=== PATIENT | female | born 1990 | race Caucasian/White ===

== ENCOUNTER → 2019-07-21 15:15 | Outpatient (BNVA) | payer OTHER, SELFPAY | PROVIDERS: Family Provider Obstetrics & Gynecology; Visit Provider Nurse Practitioner Women's Health | DX: N93.9 Abnormal uterine and vaginal bleeding, unspecified (principal); Z11.3 Encounter for screening for infections with a predominantly sexual mode of transmission; R10.2 Pelvic and perineal pain | CPT/HCPCS: 84443; 85025; 86592; 86803; 87491; 87591; 87661 ==

== ENCOUNTER → 2019-10-18 09:10 | Outpatient (BNVA) | payer OTHER, SELFPAY | PROVIDERS: Family Provider Obstetrics & Gynecology; Visit Provider Nurse Practitioner Women's Health | DX: A74.9 Chlamydial infection, unspecified (principal); R30.9 Painful micturition, unspecified; N76.0 Acute vaginitis; B96.89 Other specified bacterial agents as the cause of diseases classified elsewhere; N89.8 Other specified noninflammatory disorders of vagina | CPT/HCPCS: 81000; 87491; 87529 ==

== ENCOUNTER 2020-01-31 02:53 | Emergency (ER) | payer OTHER, SELFPAY ==
[2020-01-31 02:56] VITALS: BP 152/85; PULSE 103; RESP 18; TEMP 36.3; O2SAT 99; BMI 29.5
--- NOTE | 2020-01-31 03:00 | XR_ITS ---
WS: [id number] EXAM: AP CHEST: PORTABLE UPRIGHT DATE OF EXAM: 01/31/2020, 0312 hours COMPARISON: Chest x-ray from 04/02/2016. HISTORY: Patient is 29 years old with fever, shortness of breath since yesterday. FINDINGS: The cardiac silhouette is normal in size. The mediastinal contours are normal. The pulmonary vas cularity is normal. Lungs are clear. Calcified granuloma in the outer right mid hemithorax. There i s no effusion or pneumothorax. No acute bony abnormality is seen. XR/XR chest 1V portable [id number] IMPRESSION: No acute pulmonary disease.
--- NOTE | 2020-01-31 03:00 | W.ED.SOB ---
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 Patient states she was in the MICU a week ago started having a fever along with shortness of breath last night. She is concerned she may have COVID. She has some body aches. Denies any vomiting. Denies any worsening or improving factors. Associated symptoms: Reports fever(s); Deny abdominal pain, chest pain, nausea or vomiting Review of Systems Const: Reports: fever(s), chills and body aches Eyes: Denies: blurry vision or eye discomfort ENMT: Denies: throat pain or dental pain Card: Denies: chest pain Resp: Reports: dyspnea GI: Denies: abdominal pain, nausea, vomiting or diarrhea : Denies: dysuria Musc: Denies: neck pain or back pain Skin/Breast: Denies: rash Neuro: Denies: headache(s) Psych: Denies: depression Rony/Lymph: Denies: easy bruising All/Imm: Denies: urticaria PFSH ED PFSH: Medical History Abnormal uterine bleeding Anxiety and depression Cervical intraepithelial neoplasia Surgical History H/O section (12/08/18) CLASSICAL DELIVERY performed at [facility]. Operative reports have been obtained and scanned into the chart on 02/06/2019---given small uterine size with fundal dyspnea umbilicus classical hysterotomy made and the incision extended with bandage scissors. Double layer closure with good hemostasis noted. H/O laparoscopy (04/01/16) 04/01/2016---diagnostic laparoscopy for chronic pain-per patient everything was normal-operative report was reviewed-normal tubes, ovaries and uterus. No endometriosis or any pathology identified. No specimen sent. History of conization of cervix (03/23/19) for BRITTANY 2---> performed by Dr. Ron at [facility]. Pathology showed BRITTANY-1 with negative margins and posteriorly. Post LEEP ECC was benign. History of hip surgery (~2012) Hip surgery for a torn tendon in [facility] Hx of tonsillectomy (~2007) Status post surgical removal of malignant neoplasm of skin (~2017) from head-wide local excision performed in 2018. Family History Grandmother Cancer MATERNAL Diabetes MATERNAL AND PATERNAL Hypertension MATERNAL AND PATERNAL Heart disease MATERNAL Hypercholesteremia MATERNAL Family history of thyroid problem MATERNAL Grandfather Cancer MATERNAL Diabetes MATERNAL Hypertension MATERNAL AND PATERNAL Colon cancer MATERNAL Stroke MATERNAL Mother Hypertension Family history of thyroid problem Father No problems noted. Father Hypertension Family/Other Stroke MATERNAL AUNT Patient denies medical problems Breast Cancer, Ovarian Cancer, UTERINE CANCER Social History Smoking and tobacco status: never smoked Alcohol intake: current Alcohol intake frequency: holidays/special occasions only Female Reproductive History: Date of last menstrual period: 01/17/20 Physical Exam Const: COMMON NORMALS: no acute distress, patient oriented x3 and healthy appearing HENMT: COMMON NORMALS: normocephalic and atraumatic HEAD & SCALP: normocephalic and atraumatic Eye: COMMON NORMALS: Equal, round and reactive pupils present and EOMs intact bilaterally PUPIL: Yes Equal, round and reactive pupils present Neck/C-Spine: COMMON NORMALS: full ROM and supple Chest: COMMONS NORMALS: normal inspection of the chest and normal palpation of entire chest wall Resp: COMMON NORMALS: normal respiratory effort, No retractions, No use of accessory muscles and clear to auscultation bilaterally AUSCULTATION: clear to auscultation bilaterally Cardio: COMMON NORMALS: regular rate, regular rhythm and No murmurs present (Cardio) RATE: regular rate RHYTHM: regular rhythm GI: COMMON NORMALS: Normal to inspection, nondistended, normoactive bowel sounds present, Soft to palpation, non-tender and no masses PALPATION: Yes Soft to palpation Extremity: COMMON NORMALS: normal to inspection and full ROM Neuro: COMMON NORMALS: patient oriented x3, moves all extremities and no focal motor deficits Psych: COMMON NORMALS: mental status grossly normal, Normal thought process present and cooperative THOUGHT PROCESS: Normal thought process present Skin: COMMON NORMALS: no rashes or lesions noted and no wounds GENERAL SKIN EXAM: no rashes or lesions noted Course Vital Signs: Vital signs: Vital Signs Temperature 97.3 F L 01/31/20 02:56 Pulse Rate 103 H 01/31/20 02:56 Respiratory Rate 18 01/31/20 02:56 Blood Pressure 152/85 01/31/20 02:56 Pulse Oximetry 99 01/31/20 02:56 MDM - SOB/Dyspnea MDM Narrative: Medical decision making narrative: Patient presents here with cough congestion fevers likely viral in origin. Patient's COVID test here is negative. X-ray is negative as well. Patient stable for discharge. Lab Data: Labs: Lab Results 01/31/20 Range/Units 03:16 SARS-CoV-2 Ag (Rap id) Negative (Negative) Imaging Data^: CXR: Attestation: I personally reviewed and interpreted this imaging study as follows: My impression: no acute abnormality Discharge Plan Discharge Patient Disposition: Home Clinical Impression: Upper respiratory infection Qualifiers: URI type: unspecified URI Qualified Code(s): J06.9 - Acute upper respiratory infection, unspecified Condition: Stable Prescriptions: No Action venlafaxine [Effexor XR] 150 mg capsule,extended release 24hr 150 mg PO DAILY RF: 0 metronidazole 500 mg tablet 500 mg PO BID Qty: 14 RF: 0 valacyclovir [Valtrex] 1 gram tablet 1,000 mg PO Q12H Qty: 20 RF: 0 lidocaine 5 % gel See Rx Instructions .ROUTE .COMPLEX Qty: 30 RF: 3 norethindrone-e.estradiol-iron [Microgestin Fe 1.5/30 (28)] 1.5 mg-30 mcg (21)/75 mg (7) tablet 1 tab PO DAILY Qty: 28 RF: 2 valacyclovir [Valtrex] 500 mg tablet 500 mg PO DAILY Qty: 90 RF: 4 fluconazole [Diflucan] 150 mg tablet 150 mg PO DAILY Qty: 2 RF: 0 Discharge Orders: Discharge Order (Routine); Ordered 01/31/20 Ordered By: Gela Neal Discharge Diet: Advance as tolerated Discharge Activity: Resume usual activity Patient Instructions: Upper Respiratory Infection (ED) Coding Level of Care Code ED Electro Mechanical Engineer for Anuj 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
[2020-01-31 03:47] LABS: SARS Covid-2 Antigen Negative (Negative)
[2020-01-31 03:57] VITALS: BP 126/78; PULSE 78; RESP 14; O2SAT 100
== END 2020-01-31 03:59 | disposition home or self-care (01) ==
PROVIDERS: Emergency Provider Emergency Medicine
DX: J06.9 Acute upper respiratory infection, unspecified (principal)
CPT/HCPCS: 12345; 71045; 87426; 99281; 99283

== ENCOUNTER 2020-02-03 17:35 | Emergency (ER) | payer OTHER, SELFPAY ==
[2020-02-03 17:41] VITALS: BP 144/85; PULSE 109; RESP 18; TEMP 36.3; O2SAT 97; BMI 26.6
--- NOTE | 2020-02-03 17:57 | ED_ITS ---
HPI - Abdominal Pain General: Chief Complaint: Abdominal Pain Stated Complaint: abd pain Time Seen by Provider: 02/03/20 17:50 History of Present Illness: HPI narrative: Patient complains of abdominal pain after eating today. Started last night she ate peanut butter and milk and he had some pretty sharp pain about 15 minutes afterward it did calm down she went to bed woke up this morning just fine then again she ate some pretzels and and stuff today and about within 15 minutes she started have some right upper quadrant pain pretty severe MD elicited complaint: abdominal pain Onset (ago): hour(s) Pain Consistency: colicky Location: RUQ Severity: moderate Quality: aching Radiation: none Migration to: no migration Exacerbating factors: eating Relieving factors: rest Associated Symptoms: Reports no associated symptoms; Denies chills, fever(s), nausea and vomiting Related Data: Date of Last Menstrual Period: 01/17/20 Review of Systems Const: Denies: fever(s), chills or body aches Eyes: Denies: change in vision or blurry vision ENMT: Denies: throat pain or nasal congestion Card: Denies: chest pain or dyspnea on exertion Resp: Denies: dyspnea, productive cough or non-productive cough GI: Reports: abdominal pain; Denies: nausea or vomiting Musc: Denies: extremity pain Skin/Breast: Denies: rash Neuro: Denies: headache(s) Psych: Denies: anxiety or depression Rony/Lymph: Denies: easy bruising [facility] ED PFSH: Medical History (Updated 02/03/20 @ 19:45 by JOHAN Barber) Abnormal uterine bleeding Anxiety and depression Cervical intraepithelial neoplasia Surgical History H/O section (12/08/18) CLASSICAL DELIVERY performed at [facility]. Operative reports have been obtained and scanned into the chart on 02/06/2019---given small uterine size with fundal dyspnea umbilicus classical hysterotomy made and the incision extended with bandage scissors. Double layer closure with good hemostasis noted. H/O laparoscopy (04/01/16) 04/01/2016---diagnostic laparoscopy for chronic pain-per patient everything was normal-operative report was reviewed-normal tubes, ovaries and uterus. No endometriosis or any pathology identified. No specimen sent. History of conization of cervix (03/23/19) for BRITTANY 2---> performed by Dr. Ron at [facility] [place]. Pathology showed BRITTANY-1 with negative margins and posteriorly. Post LEEP ECC was benign. History of hip surgery (~2012) Hip surgery for a torn tendon in [facility] Hx of tonsillectomy (~2007) Status post surgical removal of malignant neoplasm of skin (~2017) from head-wide local excision performed in 2018. Family History Grandmother Cancer MATERNAL Diabetes MATERNAL AND PATERNAL Hypertension MATERNAL AND PATERNAL Heart disease MATERNAL Hypercholesteremia MATERNAL Family history of thyroid problem MATERNAL Grandfather Cancer MATERNAL Diabetes MATERNAL Hypertension MATERNAL AND PATERNAL Colon cancer MATERNAL Stroke MATERNAL Mother Hypertension Family history of thyroid problem Father No problems noted. Father Hypertension Family/Other Stroke MATERNAL AUNT Patient denies medical problems Breast Cancer, Ovarian Cancer, UTERINE CANCER Social History Smoking and tobacco status: never smoked Alcohol intake: current Alcohol intake frequency: holidays/special occasions only Female Reproductive History: Date of last menstrual period: 01/17/20 Physical Exam Const: COMMON NORMALS: no acute distress, average body habitus and patient oriented x3 HENMT: COMMON NORMALS: normocephalic HEAD & SCALP: normal to inspection and normocephalic FACE & SINUS: normal facial exam Eye: COMMON NORMALS: conjunctivae normal GENERAL EYE: appearance normal, both eyes and all related structures CONJUNCTIVA: Yes conjunctivae normal Neck/C-Spine: COMMON NORMALS: no JVD Chest: COMMONS NORMALS: normal inspection of the chest Resp: COMMON NORMALS: normal respiratory effort and clear to auscultation bilaterally AUSCULTATION: clear to auscultation bilaterally Cardio: COMMON NORMALS: no JVD, regular rate and regular rhythm RATE: regular rate RHYTHM: regular rhythm GI: COMMON NORMALS: Normal to inspection, nondistended, normoactive bowel sounds present PALPATION: Yes Tenderness to palpation present (GI) Details: RUQ Extremity: COMMON NORMALS: normal to inspection and full ROM Neuro: COMMON NORMALS: patient oriented x3 Course Vital Signs: Vital signs: Vital Signs Temperature 97.3 F L 02/03/20 17:41 Pulse Rate 81 02/03/20 18:18 Respiratory Rate 18 02/03/20 18:18 Blood Pressure 144/85 02/03/20 18:18 Pulse Oximetry 99 02/03/20 18:18 MDM - Abdominal Pain MDM Narrative: Medical decision making narrative: Patient been pain-free since here. Discussed need to have follow-up with primary care concerning possible gallbladder problems and may be functions not working well. Did discuss diet. Lab Data: Labs: Lab Results 02/03/20 02/03/20 02/03/20 Range/Units 18:08 18:08 18:17 WBC 5.8 (4.0-10.0) 10^3/ uL RBC 4.59 (4.1-5.3) 10^6/u L Hgb 12.7 (11.5-15.3) g/dL Hct 39.8 (37.0-47.0) % MCV 86.7 (81-99) fL MCH 27.7 L (28.0-34.0) pg MCHC 31.9 (30.0-36.0) g/dL RDW 13.2 (12.1-15.1) % Plt Count 228 (130-400) 10^3/c mm MPV 11.3 H (7.4-10.4) fL Neut % (Auto) 61.3 % Lymph % (Auto) 26.5 % Owen % (Auto) 5.2 % Eos % (Auto) 6.4 % Baso % (Auto) 0.3 % Neut # (Auto) 3.53 (1.8-7.7) 10^3/u L Lymph # (Auto) 1.5 (0.8-4.8) 10^3/u L Owen # (Auto) 0.3 (0.2-0.9) 10^3/u L Eos # (Auto) 0.4 (0.0-0.8) 10^3/u L Baso # (Auto) 0.0 (0.0-0.1) 10^3/u L Nucleated RBC % (a uto) 0 % Nucleated RBCs # 0.0 /100WBC Sodium (136-145) mmol/L Potassium (3.5-5.1) mmol/L Chloride (98-107) mmol/L Carbon Dioxide (22-29) mmol/L Anion Gap (5-19) BUN (6-20) mg/dL Creatinine (0.5-0.9) mg/dL GFR Calculation (90-130) mL/min Glucose (65-115) mg/dL Calculated Osmolal ity (285-295) mOsm/k g Calcium (8.5-10.5) mg/dL Total Bilirubin (0.15-1.2) mg/dL AST (0-32) U/L ALT (0-33) U/L Alkaline Phosphata se (35-105) IU/L Total Protein (6.6-8.7) g/dL Albumin (3.5-5.2) g/dL Globulin (1.3-4.6) g/dL Lipase (13-60) U/L HCG, Qual Negative (Negative) Urine Color Yellow (Yellow) Urine Appearance Clear (CLEAR) Urine pH 8 H (5-7) Ur Specific Gravit y 1.015 (1.005-1.030) Urine Protein Neg (Negative) Urine Glucose (UA) Norm (Normal) Urine Ketones Negative (Negative) Urine Blood Neg (Negative) Urine Nitrate Negative (Negative) Urine Bilirubin Neg (NEGATIVE) Prot Sulfosalicyli c Acd Negative (Negative) Urine Urobilinogen Norm (Negative) mg/dL Ur Leukocyte Noy ase Negative (Negative) 02/03/20 Range/Units 18:17 WBC (4.0-10.0) 10^3/ uL RBC (4.1-5.3) 10^6/u L Hgb (11.5-15.3) g/dL Hct (37.0-47.0) % MCV (81-99) fL MCH (28.0-34.0) pg MCHC (30.0-36.0) g/dL RDW (12.1-15.1) % Plt Count (130-400) 10^3/c mm MPV (7.4-10.4) fL Neut % (Auto) % Lymph % (Auto) % Owen % (Auto) % Eos % (Auto) % Baso % (Auto) % Neut # (Auto) (1.8-7.7) 10^3/u L Lymph # (Auto) (0.8-4.8) 10^3/u L Owen # (Auto) (0.2-0.9) 10^3/u L Eos # (Auto) (0.0-0.8) 10^3/u L Baso # (Auto) (0.0-0.1) 10^3/u L Nucleated RBC % (a uto) % Nucleated RBCs # /100WBC Sodium 139 (136-145) mmol/L Potassium 4.1 (3.5-5.1) mmol/L Chloride 104 (98-107) mmol/L Carbon Dioxide 28 (22-29) mmol/L Anion Gap 11.1 (5-19) BUN 10 (6-20) mg/dL Creatinine 0.7 (0.5-0.9) mg/dL GFR Calculation 99.6 (90-130) mL/min Glucose 107 (65-115) mg/dL Calculated Osmolal ity 284 L (285-295) mOsm/k g Calcium 8.8 (8.5-10.5) mg/dL Total Bilirubin 0.4 (0.15-1.2) mg/dL AST 17 (0-32) U/L ALT 17 (0-33) U/L Alkaline Phosphata se 56 (35-105) IU/L Total Protein 6.8 (6.6-8.7) g/dL Albumin 4.0 (3.5-5.2) g/dL Globulin 2.8 (1.3-4.6) g/dL Lipase 29 (13-60) U/L HCG, Qual (Negative) Urine Color (Yellow) Urine Appearance (CLEAR) Urine pH (5-7) Ur Specific Gravit y (1.005-1.030) Urine Protein (Negative) Urine Glucose (UA) (Normal) Urine Ketones (Negative) Urine Blood (Negative) Urine Nitrate (Negative) Urine Bilirubin (NEGATIVE) Prot Sulfosalicyli c Acd (Negative) Urine Urobilinogen (Negative) mg/dL Ur Leukocyte Noy ase (Negative) Discharge Plan Discharge Patient Disposition: Home Clinical Impression: Abdominal pain Qualifiers: Abdominal location: right upper quadrant Qualified Code(s): R10.11 - Right upper quadrant pain Condition: Stable Prescriptions: No Action valacyclovir [Valtrex] 500 mg tablet 500 mg PO DAILY Qty: 90 RF: 4 venlafaxine 50 mg Tablet 100 mg PO BID RF: 0 Discharge Orders: Discharge Order (Routine); Ordered 02/03/20 Ordered By: Honorio Multani Referrals: Jacey Mcfadden PA [Primary Care Provider] - Discharge Diet: Low Fat Discharge Activity: Resume usual activity Patient Instructions: Abdominal Pain (ED) Activity Restrictions/Additional Instructions: Follow-up with your primary care provider see about getting gallbladder ejection fraction test done. Follow gallbladder type diet stay away from dairy foods fatty foods fried foods or hot foods are hard to break down. Can return if symptoms worsen Coding Level of Care Code ED Bearing Ring Assembler for Chg 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
--- NOTE | 2020-02-03 17:58 | US_ITS ---
WS: [id number] EXAM: RIGHT UPPER QUADRANT ULTRASOUND DATE OF EXAMINATION: 02/03/2020, 1933 hour COMPARISON: None. HISTORY: 29 years old with right upper quadrant pain. FINDINGS: Visualized pancreas is normal in appearance. Proximal inferior vena cava and aorta are normal in caliber. Liver echotexture is normal without evidence of mass lesion. Liver is not appreciably enlarged. Johanna l venous flow is demonstrated by color flow and spectral Doppler with flow toward the liver. The gallbladder is only partially distended. No definite stones or sludge. No wall thickening. Common bile duct diameter is estimated at 3.1 mm in maximum transverse caliber. The right kidney is estimated at 10.4 x 6.1 x 4.5 cm in size. Cortical thickness and echotexture are normal. No mass or obstructive uropathy is seen. US/US gall bladder [id number] IMPRESSION: Normal right upper quadrant ultrasound. No gallstones or sludge. No findings of acute cholecystitis. Common bile duct 3.1 mm in transverse caliber.
[2020-02-03 17:59] VITALS: BP 144/85; RESP 18; O2SAT 97
[2020-02-03 18:18] VITALS: BP 144/85; PULSE 81; RESP 18; O2SAT 99
[2020-02-03 18:19] LABS: HCG Qualitative Urine. Negative (Negative)
[2020-02-03 18:23] LABS: Basophils % 0.3 %; Eosinophils # 0.4 10^3/uL (0.0-0.8); Eosinophils % 6.4 %; Hematocrit 39.8 % (37.0-47.0); Hemoglobin 12.7 g/dL (11.5-15.3); Lymphocytes # 1.5 10^3/uL (0.8-4.8); Lymphocytes % 26.5 %; Mean Corpuscular HGB Conc 31.9 g/dL (30.0-36.0); Mean Corpuscular Hemoglobin 27.7 pg (28.0-34.0); Mean Corpuscular Volume 86.7 fL (81-99); Mean Platelet Volume 11.3 fL (7.4-10.4); Monocytes # 0.3 10^3/uL (0.2-0.9); Monocytes % 5.2 %; Neutrophils # 3.53 10^3/uL (1.8-7.7); Neutrophils % 61.3 %; Nucleated Red Blood Cells % 0 %; Platelet Count 228 10^3/cmm (130-400); Red Blood Count 4.59 10^6/uL (4.1-5.3); Red Cell Distribution Width 13.2 % (12.1-15.1); White Blood Count 5.8 10^3/uL (4.0-10.0)
[2020-02-03] MEDS: sodium chloride 0.9% 1,000 ML 999 ML IV (18:23)
[2020-02-03] MEDS: ondansetron 2 mg/ML SDV 2 mL 4 MG IVP (18:23)
[2020-02-03 18:27] LABS: Add Urine Microscopic? NO; Bilirubin Urine Neg (NEGATIVE); Blood Urine Neg (Negative); Glucose Urine UA Norm (Normal); Ketones Urine Negative (Negative); Leukocyte Esterase Urine Negative (Negative); Nitrate Urine Negative (Negative); Protein Urine Neg (Negative); Specific Gravity, Urine 1.015 (1.005-1.030); Sulfosalicylic Acid Urine Negative (Negative); Urine Appearance Clear (CLEAR); Urine Color Yellow (Yellow); Urobilinogen Urine Norm (Negative); pH Urine 8 (5-7)
[2020-02-03 18:42] LABS: Alanine Aminotransferase 17 U/L (0-33); Alkaline Phosphatase 56 IU/L (35-105); Anion Gap 11.1 (5-19); Aspartate Amino Transferase 17 U/L (0-32); Blood Urea Nitrogen 10 mg/dL (6-20); Calcium 8.8 mg/dL (8.5-10.5); Carbon Dioxide 28 mmol/L (22-29); Chloride 104 mmol/L (98-107); Globulin 2.8 g/dL (1.3-4.6); Glomerular Filtration Rate 99.6 mL/min (90-130); Glucose 107 mg/dL (65-115); Lipase 29 U/L (13-60); Osmolality Calculated 284 mOsm/kg (285-295); Potassium 4.1 mmol/L (3.5-5.1); Sodium 139 mmol/L (136-145); Total Bilirubin 0.4 mg/dL (0.15-1.2); Total Protein 6.8 g/dL (6.6-8.7)
[2020-02-03 20:15] VITALS: BP 131/56; PULSE 76; RESP 18; O2SAT 100
== END 2020-02-03 20:17 | disposition home or self-care (01) ==
PROVIDERS: Emergency Provider Nurse Practitioner Family; PCP Physician Assistant
DX: R10.11 Right upper quadrant pain (principal)
CPT/HCPCS: 12345; 76705; 80053; 81003; 81025; 83690; 85025; 96361; 96374; 96375; 99283; J2405; J7030

== ENCOUNTER 2020-02-14 06:53 | Day surgery (SDC) | payer OTHER, SELFPAY ==
[2020-02-13 11:27] VITALS: BMI 32.5
[2020-02-14 07:19] VITALS: BP 130/78; PULSE 86; RESP 16; TEMP 36.2; O2SAT 100
[2020-02-14] MEDS: sodium chloride 0.9% 1,000 ML 30 ML IV (07:25)
[2020-02-14 07:29] LABS: OR HCG Qualitative Urine Negative (Negative)
--- NOTE | 2020-02-14 07:35 | ANES.PREANE2 ---
Pre-Anesthetic Assessment Pre-Anesthetic Assessment: Height/Weight: Height 1.75 m Weight 99.79 kg Temp Pulse Resp BP Pulse Ox 97.2 F L 86 16 130/78 100 02/14/20 07:19 02/14/20 07:19 02/14/20 07:19 02/14/20 07:19 02/14/20 07:19 Preop Diagnosis: abdominal pain Proposed Procedure: Operation Date: 02/14/20 07:45 Proposed Procedures p EGD/colon 78515 18055 K59.00 R10.13(Not Applicable) - Edu Mccormack MD s Colonoscopy(Not Applicable) - Edu Mccormack MD Was Beta Carissa taken within 24 hours: N/A Last intake: Intake Last Liquid Date 02/13/20 Last Liquid Time 00:00 Last Solid Date 02/12/20 Last Solid Time 18:30 Social: Social History: No alcohol and No tobacco Exam: Pre-Anes Outpt Exam: alert, oriented x 3, clear to auscultation bilaterally and regular rate & rhythm Airway: Submandibular: WNL MP: 1 Dentition: Full History/ROS: No significant history except as noted and No significant complaints Pulmonary: Pulmonary: None reported CV/HEM: CV/HEM: None reported : : None reported Hepatic: Hepatic: None reported GI: GI: None reported Metabolic: Metabolic: None reported Musc/skel: Musc/skel: None reported Neuropsych: Neuropsych: None reported Anesthetic Plan: ASA status: 1 Anesthesia: MAC Meds/Allergies Current Medications: Current Medications Generic Name Dose Route Start Last Admin Trade Name Freq PRN Reason Stop Dose Admin Sodium Chloride 1,000 mls @ 30 ml s/hr 02/14/20 07:00 02/14/20 07:25 Sodium Chloride 0.9% IV 02/15/20 06:59 30 mls/hr .Q24H KHANG Administration PFSH Anesthesia PFSH: Medical History (Updated 02/11/20 @ 00:01 by ) Abnormal uterine bleeding Anxiety and depression Cervical intraepithelial neoplasia Surgical History H/O section (12/08/18) CLASSICAL DELIVERY performed at [facility]. Operative reports have been obtained and scanned into the chart on 02/06/2019---given small uterine size with fundal dyspnea umbilicus classical hysterotomy made and the incision extended with bandage scissors. Double layer closure with good hemostasis noted. H/O laparoscopy (04/01/16) 04/01/2016---diagnostic laparoscopy for chronic pain-per patient everything was normal-operative report was reviewed-normal tubes, ovaries and uterus. No endometriosis or any pathology identified. No specimen sent. History of conization of cervix (03/23/19) for BRITTANY 2---> performed by Dr. Ron at [facility] [place]. Pathology showed BRITTANY-1 with negative margins and posteriorly. Post LEEP ECC was benign. History of hip surgery (~2012) Hip surgery for a torn tendon in [facility] Hx of tonsillectomy (~2007) Status post surgical removal of malignant neoplasm of skin (~2017) from head-wide local excision performed in 2018. Family History Grandmother Cancer MATERNAL Diabetes MATERNAL AND PATERNAL Hypertension MATERNAL AND PATERNAL Heart disease MATERNAL Hypercholesteremia MATERNAL Family history of thyroid problem MATERNAL Grandfather Cancer MATERNAL Diabetes MATERNAL Hypertension MATERNAL AND PATERNAL Colon cancer MATERNAL Stroke MATERNAL Mother Hypertension Family history of thyroid problem Father No problems noted. Father Hypertension Family/Other Stroke MATERNAL AUNT Patient denies medical problems Breast Cancer, Ovarian Cancer, UTERINE CANCER Social History Smoking and tobacco status: never smoked Alcohol intake: current Alcohol intake frequency: holidays/special occasions only Lives independently: Yes Marital status: Single Current occupational status: employed History of recent travel: No Female Reproductive History: Date of last menstrual period: 01/17/20 Data Anesthesia Other Labs: Laboratory Results - last 48 hr 02/14/20 07:12 Urine HCG, Qual Negative Cardiac Studies: No Data to Display
--- NOTE | 2020-02-14 07:40 | W.PM.OPSUD ---
Surgery/Procedure H&P Update DATE OF PROCEDURE: February 14, 2020 DATE H&P PERFORMED: 02/08/20 H&P UPDATE INFORMATION: I have reviewed H&P completed within last 30 days, I have examined patient prior to procedure and No changes to prior documentation PREOP DIAGNOSIS: abdominal pain PRIMARY INDICATION FOR PROCEDURE: The same PLANNED PROCEDURE: Operation Date: 02/14/20 07:45 Proposed Procedures p EGD/colon 24821 [id number] K59.00 R10.13(Not Applicable) - Edu Mccormack MD s Colonoscopy(Not Applicable) - Edu Mccormack MD
[2020-02-14 08:06] VITALS: BP 112/62; PULSE 45; RESP 16; TEMP 36.1; O2SAT 100
--- NOTE | 2020-02-14 08:22 | ANE.PACU2 ---
Inpatient post-anesthesia follow up: Airway intact: Yes Vital signs: Temperature 97 F Pulse Rate 45 Respiratory Rate 16 Blood Pressure 112/62 Pulse Oximetry 100 Oxygen Delivery Me thod Nasal Cannula Oxygen Flow Rate 2 Fraction of Inspir ed Oxygen Hydration adequate: Yes Nausea and vomiting: No Mental status: Baseline
[2020-02-15 10:02] LABS: H. Pylori / CLO Test Negative
== END 2020-02-14 08:29 | disposition home or self-care (01) ==
PROVIDERS: Anesthesiology; PCP Physician Assistant; Visit Provider Surgery
PROC: 0DJ08ZZ Inspection of Upper Intestinal Tract, Via Natural or Artificial Opening Endoscopic (ICD-10-PCS; CPT 43235; principal; 2020-02-14 07:45)
PROC: 0DJD8ZZ Inspection of Lower Intestinal Tract, Via Natural or Artificial Opening Endoscopic (ICD-10-PCS; CPT 45378; 2020-02-14 07:45)
DX: K29.70 Gastritis, unspecified, without bleeding (principal); K21.0 Gastro-esophageal reflux disease with esophagitis
CPT/HCPCS: 12345; 43239; 45378; 84703; 87077; J2250; J2704; J7030

== ENCOUNTER 2020-02-15 09:15 | Outpatient (CLI) | payer OTHER, SELFPAY ==
--- NOTE | 2020-02-15 10:00 | NM_ITS ---
WS: [id number] NUCLEAR MEDICINE HIDA SCAN WITH GALLBLADDER EJECTION FRACTION HISTORY: abdominal pain COMPARISON: 02/03/2020 TECHNIQUE: The patient was intravenously injected with 7.9 mCi of TC99m Mebrofenin. Immediate imaging over the right upper quadrant was followed by 5 minute image and additional images for a total of 60 minutes. Normal uptake of radiotracer throughout the liver. Activity identified in the gallbladder at 15 minutes and well distended by 60 minutes. Activity in the proximal small bowel was seen by 30 minutes. Good washout of the radiotracer from the liver by 60 minutes. The patient then drank 8 ounces of Ensure Plus. Ejection fraction at 60 minutes was 76%. Normal GB ej ection fraction is 35-75%. Post fatty meal symptoms: Nausea and indigestion. NM/NM hepatobiliary w phar* [id number] IMPRESSION: 1. Normal HIDA scan. 2. Normal gallbladder ejection fraction.
== END 2020-02-15 09:16 | disposition home or self-care (01) ==
LOC: NM 09:17
PROVIDERS: PCP Physician Assistant; Visit Provider Surgery
DX: R10.9 Unspecified abdominal pain (principal)
CPT/HCPCS: 78227; A9537

== ENCOUNTER → 2020-02-28 15:09 | Outpatient (BNVA) | payer OTHER, SELFPAY | PROVIDERS: PCP Physician Assistant; Visit Provider Obstetrics & Gynecology | DX: N87.1 Moderate cervical dysplasia (principal) | CPT/HCPCS: 88175 ==

== ENCOUNTER → 2020-03-08 12:46 | Outpatient (BNVA) | payer OTHER, SELFPAY | PROVIDERS: PCP Physician Assistant; Visit Provider Surgery | DX: Z20.828 Contact with and (suspected) exposure to other viral communicable diseases (principal) | CPT/HCPCS: 87635 ==

== ENCOUNTER 2020-03-12 05:51 | Day surgery (SDC) | payer OTHER, SELFPAY ==
[2020-03-11 12:14] VITALS: BMI 31.6
[2020-03-12] VITALS (23 sets, daily range): BP systolic 109–149; BP diastolic 60–88; PULSE 69–110; RESP 12–33; TEMP 36.1–36.7; O2SAT 93–100
[2020-03-12 06:13] LABS: OR HCG Qualitative Urine Negative (Negative)
--- NOTE | 2020-03-12 06:24 | W.PM.OPSUD ---
Surgery/Procedure H&P Update DATE OF PROCEDURE: March 12, 2020 DATE H&P PERFORMED: 02/25/20 H&P UPDATE INFORMATION: I have reviewed H&P completed within last 30 days, I have examined patient prior to procedure and No changes to prior documentation PREOP DIAGNOSIS: Abdominal pain and constipation PRIMARY INDICATION FOR PROCEDURE: The same PLANNED PROCEDURE: Operation Date: 03/12/20 07:00 Proposed Procedures p Laparoscopic Cholecystectomy 45671 K80.50(Not Applicable) - Edu Mccormack MD
[2020-03-12] MEDS: sodium chloride 0.9% 1,000 ML 30 ML IV (06:35)
[2020-03-12] MEDS: scopolamine 1.5 Patch 1 PATCH TRANSDERMA (06:40)
--- NOTE | 2020-03-12 06:48 | ANES.PREANE2 ---
Pre-Anesthetic Assessment Pre-Anesthetic Assessment: Height/Weight: Height 1.75 m Weight 97.069 kg Temp Pulse Resp BP Pulse Ox 97 F L 69 18 129/75 100 03/12/20 06:01 03/12/20 06:01 03/12/20 06:01 03/12/20 06:01 03/12/20 06:01 Preop Diagnosis: Abdominal pain and constipation Proposed Procedure: Operation Date: 03/12/20 07:00 Proposed Procedures p Laparoscopic Cholecystectomy 79136 K80.50(Not Applicable) - Edu Mccormack MD Familial anesthetic complications: Uncontrolled pain afterwards, which ends up being medicated w/ opioids and patient has had to receive narcan and be admitted Was Beta Carissa taken within 24 hours: N/A Last intake: Intake Last Liquid Date 03/11/20 Last Liquid Time 23:59 Last Solid Date 03/11/20 Last Solid Time 18:00 Social: Social History: No alcohol and No tobacco Exam: Pre-Anes Outpt Exam: alert, oriented x 3, clear to auscultation bilaterally and regular rate & rhythm Airway: Cervical ROM: WNL MP: 3 Dentition: Full GI: GI: GERD Anesthetic Plan: ASA status: 1 Anesthesia: General Other: Will give gabapentin 600 mg PO + oxycodone 10 mg IR PO preo-op Will give intraop Ketamine 30-50 mg in 10 mg bolus doses Toradol 30 mg IV intraop IV tylenol currently infusing in pre-op Risk of > 500 ml blood loss (7ml/kg in children): No Meds/Allergies Current Medications: Current Medications Generic Name Dose Route Start Last Admin Trade Name aMckq PRN Reason Stop Dose Admin Sodium Chloride 1,000 mls @ 30 ml s/hr 03/12/20 05:45 03/12/20 06:35 Sodium Chloride 0.9% IV 03/13/20 05:44 30 mls/hr .Q24H KHANG Administration PFSH Anesthesia PFSH: Medical History Anxiety and depression 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 Is currently weaning herself off the medication and states that she feels much better and more herself. She follows up with Jacey Mcfadden her primary care provider. Does not have a therapist GERD (gastroesophageal reflux disease) On Protonix. Status post endoscopy in 2019. No pertinent past medical history Denies hypertension, asthma, seizures, diabetes, DVT/PE PCP: Gordo White Surgical History H/O section (12/08/18) CLASSICAL DELIVERY performed at [facility]. Operative reports have been obtained and scanned into the chart on 02/06/2019---given small uterine size , classical hysterotomy made and the incision extended with bandage scissors. Double layer closure. H/O laparoscopy (04/01/16) 04/01/2016---diagnostic laparoscopy for chronic pain-per patient everything was normal-operative report was reviewed-normal tubes, ovaries and uterus. No endometriosis or any pathology identified. No specimen sent. History of colonoscopy (~02/2020) History of conization of cervix (03/23/19) for BRITTANY 2---> performed by Dr. Ron at [facility] [place]. Pathology showed BRITTANY-1 with negative margins and posteriorly. Post LEEP ECC was benign. History of esophagogastroduodenoscopy (EGD) (~02/2020) History of hip surgery (~2012) Hip surgery for a torn tendon in [facility] Hx of tonsillectomy (~2007) Status post surgical removal of malignant neoplasm of skin (~2017) from head-wide local excision performed in 2018. Family History Grandmother Heart disease maternal Hypercholesteremia maternal Family history of thyroid problem maternal Diabetes maternal and paternal Hypertension maternal and paternal Grandfather Diabetes maternal Colon cancer maternal, age at diagnosis unknown Hypertension maternal and paternal Stroke maternal Mother Hypertension Family history of thyroid problem Father No problems noted. Father Hypertension Family/Other Stroke maternal Denies family history of Ovarian cancer Breast cancer Social History Smoking and tobacco status: never smoked Alcohol intake: current Alcohol intake frequency: holidays/special occasions only Lives independently: Yes Marital status: Single Current occupational status: employed History of recent travel: No Female Reproductive History: Date of last menstrual period: 01/17/20 Data Anesthesia Other Labs: Laboratory Results - last 48 hr 03/12/20 05:58 Urine HCG, Qual Negative Cardiac Studies: No Data to Display
[2020-03-12] MEDS: oxyCODONE 5 mg IR Tab/Cap 10 MG PO (07:02)
[2020-03-12] MEDS: gabapentin 300 mg Capsule 600 MG PO (07:03)
[2020-03-12] MEDS: lidocaine 2% INJ 20 mL INJECTION (08:02)
--- NOTE | 2020-03-12 08:15 | PM.OP ---
Operative Report Date of procedure: March 12, 2020 Pre-op Diagnosis: Abdominal pain and constipation Post-op diagnosis: other (Chronic cholecystitis) Post-op Findings: Chronic cholecystitis Procedure Done: Laparoscopic cholecystectomy Specimens removed/disposition: Gallbladder and contents Surgeon: Edu Mccormack Oracle Application Architect: Surgical techdebbie Granados Circulating nurse Karla Anesthesia: General (therapeutic riding instructor Mitali) Estimated blood loss (mL): 5 Condition: stable Disposition: same day Brief History: This is a pleasant 29 years old female patient with symptomatic biliary colics. Plan of care; After thorough history physical examination and reviewing the chart ,I counseled the patient for laparoscopic cholecystectomy possible open, indications risks including but not limited injury to the common bile duct and other viscera.benefits and alternatives all discussed with the patient, and she did agree to proceed. All questions have been answered and all concerns have been addressed to patient's satisfaction. Rationale was carefully and clearly discussed with the patient.Appropriate informed consent have been reviewed and signed. Procedure: Patient was identified in the holding area and taken back to the operative suite, placed in supine position intubated by anesthesia . Time-out was done verifying the patient's name/date of /planned procedure and destination after the procedure, all were in agreement. SCDs confirmed to be functioning, preoperative antibiotics administered per protocol, and beta mecca protocol was confirmed. Patient was appropriately secured to the table, footboard was applied to the OR table, before prep and drape anesthesia was asked to tilt the table back and forth to make sure that the patient is appropriately secured and she was. Prep and drape of the abdomen was done under the usual sterile technique, followed by that supraumbilical skin incision,skin incision was done by a 15 blade knife, and stay sutures were applied to the fascia and May trocar technique was used to enter the abdominal without injuring any abdominal viscera, started by low flow gas insufflation followed by a high flow, started with a 10 mm laparoscope and under direct vision there was no evidence of any injuries, the scope then switched to a 30? ,10 millimeter scope and under direct visualization 5 millimeter trocar was inserted in the epigastric region followed by two 5 mm trocars were inserted in the right upper quadrant that was done after injection of local lidocaine 2% at all incision sites. Gallbladder showed chronic cholecystitis. Patient was then positioned in the head up and tilted to the left Ratcheted forceps were introduced into the lateral most 5mm port and was applied unto the fundus of the gallbladder cephalad and using Bullet forceps the infundibulum of the gallbladder was retracted laterally. Using [place] forceps then L-hook cautery to dissect the peritoneum overlying the Calot's triangle which was then opened medially and laterally until the cystic duct and the cystic artery were skeletonized.Dissection was carried along the body of the gallbladder and after ensuring critical view of safety was identfied. Cystic duct and cystic artery where seen connected to the gallbladder. Clips were applied on the cystic duct towards the common bile duct 1 towards the gallbladder then divided is in sharp scissors, 2 clips were then applied onto the cystic artery and 1 towards the gallbladder and divided by sharp scissors. Additional traversing vessel was clipped and divided Dissection was then carried along of the gallbladder from the gallbladder fossa using cautery as well as sharp dissection with heat energy. The gallbladder then was dissected out from the gallbladder fossa totally , cholecystectomy was then achieved and was placed in an Endo Catch bag and then retrieved from the May trocar site under direct visualization using a 5 mm 30? scope through the epigastric trocar, specimen was then passed to the circulating nurse to go for permanent pathology,irrigation and hemostasis was done to the gallbladder fossa after hemostasis was secured, final survey laparoscopy was done that showed no injuries. The supraumbilical fascial defect was then closed using interrupted #1 PDS sutures using a fascial closure device ;Inocencio Salcedo under direct visualization Gas was allowed to deflate,Trocars were then taken out under direct vision there was no evidence of bleeding Specimen was passed to the circulating nurse for permanent pathology. No drains were placed and the supraumbilical incision as well as all trocar sites were closed by by 4-0 Monocryl to approximate the skin edges of the supraumbilical incision, dressing was applied in the form of Dermabond and the patient patient got extubated and was taken to recovery area in a stable condition. Count of sponges, needles and instruments were completed at the end of the procedure I was present for the whole entire procedure.
--- NOTE | 2020-03-12 08:28 | SUR.PHASEI ---
0826 PATIENT TO PACU FROM OR. RR EVEN AND UNLABORED. SPO2 100% ON SIMPLE MASK. 4 INCISIONS TO ABDOMEN, CLOSED WITH EXOFIN. CDI.
[2020-03-12] MEDS: fentaNYL 50 mcg/mL INJ 2mL IVP (08:53)
[2020-03-12] MEDS: LORazepam 2 mg/mL INJ 1 mL 0.5 MG IVP (09:22)
--- NOTE | 2020-03-12 09:24 | SUR.PHASEI ---
0924 1.5 MG OF ATIVAN WASTED. WASTED WITH AUSTEN HINTON RN.
--- NOTE | 2020-03-12 09:37 | SUR.PHASEI ---
0930 PATIENT TO OPS. RESTING COMFORTABLE ON GURNEY. 4 INCISIONS TO ABDOMEN, CDI.
--- NOTE | 2020-03-12 09:39 | SUR.PHASEI ---
0930 PATIENT TO OPS, ANESTHESIA AWARE OF LAST DOSE OF ATIVAN.
[2020-03-12] MEDS: ondansetron 2 mg/ML SDV 2 mL 4 MG IVP (11:03)
--- NOTE | 2020-03-12 11:08 | SUR.PHASEII ---
1100 Pt nauseated following saltine crackers. Zofran 4 mg IVP as ordered for post op nausea.
--- NOTE | 2020-03-12 11:20 | ANE.PACU2 ---
Inpatient post-anesthesia follow up: Airway intact: Yes Vital signs: Temperature 97.7 F Pulse Rate 92 Respiratory Rate 16 Blood Pressure 124/73 Pulse Oximetry 97 Oxygen Delivery Me thod Room Air Oxygen Flow Rate 8 Fraction of Inspir ed Oxygen Hydration adequate: Yes Nausea and vomiting: No Pain level: 4 Mental status: Baseline
[2020-03-12] MEDS: HYDROcodone-acetaminophen 5-325 mg Tablet 1 TAB PO (11:36)
== END 2020-03-12 11:37 | disposition home or self-care (01) ==
PROVIDERS: Anesthesiology; PCP Physician Assistant; Visit Provider Surgery
PROC: 0FT44ZZ Resection of Gallbladder, Percutaneous Endoscopic Approach (ICD-10-PCS; CPT 47562; principal; 2020-03-12 07:00)
DX: K81.1 Chronic cholecystitis (principal); K21.9 Gastro-esophageal reflux disease without esophagitis
CPT/HCPCS: 47562; 12345; 81025; 84703; 88304; 96365; J0131; J0690; J1100; J1885; J2060; J2250; J2405; J2704; J2710; J3010; J3490; J7030

== ENCOUNTER 2020-04-28 20:06 | Emergency (ER) | payer OTHER, SELFPAY ==
--- NOTE | 2020-04-28 20:15 | XRR_ITS ---
PROCEDURE INFORMATION: Exam: XR Left Ankle Exam date and time: 04/28/2020 8:32 PM Age: 29 years old Clinical indication: Injury or trauma; Fall; Sprain or strain; Ankle; Left; Additional info: Left ankle injury; Vrad to read please TECHNIQUE: Imaging protocol: XR Left ankle. Views: 3 or more views. COMPARISON: No relevant prior studies available. FINDINGS: Bones/joints: Normal. Soft tissues: Normal. XR/XR ankle LT min 3V* [id number] IMPRESSION: No acute findings.
--- NOTE | 2020-04-28 20:16 | W.ED.EXTPRO ---
HPI - Extremity Problem General: Chief complaint: Extremity Injury, Lower Stated complaint: L ANKLE INJURY Time Seen by Provider: 04/28/20 20:07 Source: patient Mode of arrival: wheelchair Limitations: no limitations History of Present Illness: HPI Narrative: 29-year-old female patient presents to the emergency department due to left ankle pain. She reports was walking the dog when she stepped in a hole with her left foot causing her to roll her ankle. She does not remember which direction her ankle deviated. Complaint: joint swelling and joint pain Onset (ago): minute(s) (30) Pain Consistency: constant Location: left, lower extremity and other (ankle) Severity scale (1-10): 7 Quality: aching, dull and constant Radiation: proximal and distal Relieving factors: immobilization and rest Exacerbating factors: range of motion, weight bearing and walking Associated symptoms: Reports no associated symptoms; Deny chest pain, fever(s) or rash Review of Systems General: Reports: 10 or more systems reviewed and unremarkable except in HPI and below Const: Denies: fever(s), chills or diaphoresis Eyes: Denies: blurry vision or eye redness ENMT: Denies: throat pain, dental pain or disequilibrium Card: Denies: chest pain, palpitations or irregular heart rhythm Resp: Denies: dyspnea, productive cough, non-productive cough or wheezing GI: Denies: abdominal pain, nausea or vomiting : Denies: difficulty voiding or dysuria Musc: Reports: joint pain (left ankle) and joint swelling (left ankle); Denies: neck pain or back pain Skin/Breast: Denies: rash or pruritus Neuro: Denies: headache(s), weakness in extremities or behavioral changes Psych: Denies: anxiety or depression Rony/Lymph: Denies: easy bruising PFS ED PFSH: Medical History Anxiety and depression 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 Is currently weaning herself off the medication and states that she feels much better and more herself. She follows up with Jacey Mcfadden her primary care provider. Does not have a therapist GERD (gastroesophageal reflux disease) On Protonix. Status post endoscopy in 2019. No pertinent past medical history Denies hypertension, asthma, seizures, diabetes, DVT/PE PCP: Gordo White Surgical History H/O section (12/08/18) CLASSICAL DELIVERY performed at [facility]. Operative reports have been obtained and scanned into the chart on 02/06/2019---given small uterine size , classical hysterotomy made and the incision extended with bandage scissors. Double layer closure. H/O laparoscopy (04/01/16) 04/01/2016---diagnostic laparoscopy for chronic pain-per patient everything was normal-operative report was reviewed-normal tubes, ovaries and uterus. No endometriosis or any pathology identified. No specimen sent. History of colonoscopy (~02/2020) History of conization of cervix (03/23/19) for BRITTANY 2---> performed by Dr. Ron at [facility] [place]. Pathology showed BRITTANY-1 with negative margins and posteriorly. Post LEEP ECC was benign. History of esophagogastroduodenoscopy (EGD) (~02/2020) History of hip surgery (~2012) Hip surgery for a torn tendon in [facility] Hx of tonsillectomy (~2007) Status post surgical removal of malignant neoplasm of skin (~2017) from head-wide local excision performed in 2018. Family History Grandmother Heart disease maternal Hypercholesteremia maternal Family history of thyroid problem maternal Diabetes maternal and paternal Hypertension maternal and paternal Grandfather Diabetes maternal Colon cancer maternal, age at diagnosis unknown Hypertension maternal and paternal Stroke maternal Mother Hypertension Family history of thyroid problem Father No problems noted. Father Hypertension Family/Other Stroke maternal Denies family history of Ovarian cancer Breast cancer Social History Smoking and tobacco status: never smoked Alcohol intake: current Alcohol intake frequency: holidays/special occasions only Lives independently: Yes Marital status: Single Current occupational status: employed History of recent travel: No Female Reproductive History: Date of last menstrual period: 01/17/20 Physical Exam Const: COMMON NORMALS: no acute distress, patient oriented x3, healthy appearing and alert GENERAL APPEARANCE: cooperative, comfortable and well hydrated HENMT: COMMON NORMALS: normocephalic, Normal external nose present and moist oral mucous membranes HEAD & SCALP: normocephalic NOSE: Normal external nose present Eye: COMMON NORMALS: Equal, round and reactive pupils present and EOMs intact bilaterally GENERAL EYE: appearance normal, both eyes and all related structures PUPIL: Yes Equal, round and reactive pupils present Neck/C-Spine: COMMON NORMALS: full ROM and no lymphadenopathy GENERAL: Yes normal visual inspection and Yes trachea midline CERVICAL SPINE: Yes cervical ROM normal Lymph: LYMPHATIC: no lymphadenopathy noted Chest: COMMONS NORMALS: normal inspection of the chest Resp: COMMON NORMALS: normal respiratory effort and clear to auscultation bilaterally AUSCULTATION: clear to auscultation bilaterally Cardio: COMMON NORMALS: regular rhythm, S1 normal heart sound present and S2 normal heart sound present RHYTHM: regular rhythm HEART SOUNDS: S1 normal heart sound present and S2 normal heart sound present GI: COMMON NORMALS: Soft to palpation and non-tender INSPECTION: Yes normal to inspection PALPATION: Yes Soft to palpation : COMMON NORMALS: Yes no CVA tenderness BLADDER/KIDNEY EXAM: Yes no CVA tenderness Back/Pelvis: COMMON NORMALS: no CVA tenderness and thoracic and lumbar spine normal to inspection Extremity: GENERAL: Yes normal exam except as noted LEFT LOWER EXTREMITY: Yes ankle joint (swelling present, pain to the entire joint, ROm limited due to pain) Left ankle: Yes neurovascular exam (distally intact) and Yes special tests Left ankle special tests: Ankle inversion test: Positive, Ankle eversion test: Positive, Ankle posterior drawer test: Positive, Ankle anterior drawer test: Positive and Squeeze test: Positive Neuro: COMMON NORMALS: patient oriented x3 and no focal motor deficits SENSORIUM/ORIENTATION: Yes alert Psych: COMMON NORMALS: mental status grossly normal, Normal thought process present and cooperative ACTIVITY/MOTOR BEHAVIOR: Yes appropriate eye contact THOUGHT PROCESS: Normal thought process present Skin: COMMON NORMALS: no rashes or lesions noted and turgor normal GENERAL SKIN EXAM: no rashes or lesions noted and turgor normal Procedures Orthopedic Splinting/Casting Injury #1: Side: left Lower Extremity Injury Location: lower leg and ankle Lower Extremity Immobilizer: posterior splint and Miguel wrap Other Orthopedic Equipment: crutches Course Vital Signs: Vital signs: Vital Signs Temperature 98.4 F 04/28/20 20:40 Pulse Rate 101 H 04/28/20 20:40 Respiratory Rate 20 H 04/28/20 20:40 Pulse Oximetry 99 04/28/20 20:40 Discharge Plan Discharge Prescriptions: No Action lactulose 10 gram/15 mL solution 0.35 gm PO BID Qty: 70 RF: 0 ondansetron HCl [Zofran] 4 mg tablet 4 mg PO Q6H PRN (Reason: nausea and vomiting) Qty: 30 RF: 1 norethindrone-e.estradiol-iron [Microgestin Fe 1.5/30 (28)] 1.5 mg-30 mcg (21)/75 mg (7) tablet 1 tab PO DAILY Qty: 84 RF: 3 [place] 5-325 mg tablet 1 tab PO Q6H PRN (Reason: pain) Qty: 28 RF: 0 pantoprazole [Protonix] 40 mg tablet,delayed release (DR/EC) 40 mg PO DAILY 30 Days Qty: 30 RF: 2 Coding Level of Care Code ED Partition Making Machine Operator for Chg 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
[2020-04-28] MEDS: HYDROcodone-acetaminophen 5-325 mg Tablet 1 TAB PO (20:39)
[2020-04-28 20:40] VITALS: PULSE 101; RESP 20; TEMP 36.9; O2SAT 99; BMI 28.8
[2020-04-28 21:23] VITALS: RESP 20
[2020-04-28] MEDS: HYDROmorphone 1 mg/mL INJ 1 mL 2 MG IM (21:23)
[2020-04-28] MEDS: ondansetron 2 mg/ML SDV 2 mL 4 MG IM (21:54)
--- NOTE | 2020-04-28 22:13 | PC.NURSE ---
pt given 2 tablets hydrocodone 5mg 325mg to take home Q4. medication education provided. pt verbalizes understanding.
--- NOTE | 2020-04-28 22:27 | W.ED.EXTPRO ---
HPI - Extremity Problem General: Chief complaint: Extremity Injury, Lower Stated complaint: L ANKLE INJURY Time Seen by Provider: 04/28/20 20:07 Source: patient Mode of arrival: wheelchair Limitations: no limitations History of Present Illness: Pain Consistency: constant Location: left, lower extremity and other (ankle) Severity scale (1-10): 7 Quality: aching, dull and constant Relieving factors: immobilization and rest Exacerbating factors: range of motion, weight bearing and walking PFS ED PFSH: Medical History (Updated 04/28/20 @ 21:18 by Maite Meyer [facility]) Anxiety and depression 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 Is currently weaning herself off the medication and states that she feels much better and more herself. She follows up with Jacey Mcfadden her primary care provider. Does not have a therapist GERD (gastroesophageal reflux disease) On Protonix. Status post endoscopy in 2019. No pertinent past medical history Denies hypertension, asthma, seizures, diabetes, DVT/PE PCP: Gordo White Surgical History H/O section (12/08/18) CLASSICAL DELIVERY performed at [facility]. Operative reports have been obtained and scanned into the chart on 02/06/2019---given small uterine size , classical hysterotomy made and the incision extended with bandage scissors. Double layer closure. H/O laparoscopy (04/01/16) 04/01/2016---diagnostic laparoscopy for chronic pain-per patient everything was normal-operative report was reviewed-normal tubes, ovaries and uterus. No endometriosis or any pathology identified. No specimen sent. History of colonoscopy (~02/2020) History of conization of cervix (03/23/19) for BRITTANY 2---> [place]. [place] [facility] Pathology showed BRITTANY-1 with negative margins and posteriorly. Post LEEP ECC was benign. History of esophagogastroduodenoscopy (EGD) (~02/2020) History of hip surgery (~2012) Hip surgery for a torn tendon in [facility] Hx of tonsillectomy (~2007) Status post surgical removal of malignant neoplasm of skin (~2017) from head-wide local excision performed in 2018. Family History Grandmother Heart disease maternal Hypercholesteremia maternal Family history of thyroid problem maternal Diabetes maternal and paternal Hypertension maternal and paternal Grandfather Diabetes maternal Colon cancer maternal, age at diagnosis unknown Hypertension maternal and paternal Stroke maternal Mother Hypertension Family history of thyroid problem Father No problems noted. Father Hypertension Family/Other Stroke maternal Denies family history of Ovarian cancer Breast cancer Social History Smoking and tobacco status: never smoked Alcohol intake: current Alcohol intake frequency: holidays/special occasions only Lives independently: Yes Marital status: Single Current occupational status: employed History of recent travel: No Female Reproductive History: Date of last menstrual period: 01/17/20 Course Vital Signs: Vital signs: Vital Signs Temperature 98.4 F 04/28/20 20:40 Pulse Rate 101 H 04/28/20 20:40 Respiratory Rate 20 H 04/28/20 21:23 Pulse Oximetry 99 04/28/20 20:40 Discharge Plan Discharge Patient Disposition: Home Clinical Impression: Fracture of distal end of fibula Qualifiers: Encounter type: initial encounter Fracture type: closed Fracture morphology: unspecified fracture morphology Laterality: left Qualified Code(s): S82.832A - Other fracture of upper and lower end of left fibula, initial encounter for closed fracture Injury of ankle, left Qualifiers: Encounter type: initial encounter Qualified Code(s): S99.912A - Unspecified injury of left ankle, initial encounter Condition: Stable Prescriptions: New hydrocodone-acetaminophen 5-325 mg tablet 1 tab PO Q4H PRN (Reason: pain) Qty: 10 RF: 0 No Action lactulose 10 gram/15 mL solution 0.35 gm PO BID Qty: 70 RF: 0 ondansetron HCl [Zofran] 4 mg tablet 4 mg PO Q6H PRN (Reason: nausea and vomiting) Qty: 30 RF: 1 norethindrone-e.estradiol-iron [Microgestin Fe 1.5/30 (28)] 1.5 mg-30 mcg (21)/75 mg (7) tablet 1 tab PO DAILY Qty: 84 RF: 3 [place] 5-325 mg tablet 1 tab PO Q6H PRN (Reason: pain) Qty: 28 RF: 0 pantoprazole [Protonix] 40 mg tablet,delayed release (DR/EC) 40 mg PO DAILY 30 Days Qty: 30 RF: 2 Discharge Orders: Discharge Order (Routine); Ordered 04/28/20 Ordered By: Maite Meyer Referrals: Jacey Mcfadden PA [Primary Care Provider] - Discharge Diet: Usual diet Discharge Activity: Limit activity as instructed Patient Instructions: Ankle Fracture (ED), Crutch Instructions (ED), Splint Care (ED) Activity Restrictions/Additional Instructions: Social service will contact you with a follow-up appointment with orthopedic Do not ambulate or bear weight on the left lower extremity until cleared by orthopedic surgery Use crutches as needed for assistance with ambulation Take hydrocodone as needed for pain, may cause constipation Drink lots of fluids Keep the left lower extremity elevated to help reduce swelling and pain Return to the emergency department if you develop increased pain of the left lower extremity, chest pain or extreme calf pain of the left leg Stand Alone Forms: Work/School Release Coding Level of Care Code ED Oracle Ebs Architect for Chris Arechiga
--- NOTE | 2020-04-29 11:09 | DCPLANNER ---
carbon sequestration plant manager had message to schedule a follow up appointment for patient with ortho. carbon sequestration plant manager called the ortho clinic, spoke with Ericka, gave clinic patients information. carbon sequestration plant manager was told that patients information would be printed and reviewed. Clinic will call patient with appointment information.
--- NOTE | 2020-04-30 08:24 | DCPLANNER ---
Patient had a follow up appointment scheduled for 04.29.20 at ortho - patient did attend appointment.
== END 2020-04-28 22:16 | disposition home or self-care (01) ==
PROVIDERS: Emergency Provider Nurse Practitioner Family; PCP Physician Assistant
DX: M25.572 Pain in left ankle and joints of left foot (principal)
CPT/HCPCS: 12345; 29515; 73610; 96372; 99281; 99283; J1170; J2405

== ENCOUNTER 2020-04-29 15:48 | Outpatient (CLI) | payer OTHER, SELFPAY | END 2020-04-29 15:49 | disposition home or self-care (01) | LOC: SPT 15:49 | PROVIDERS: PCP Physician Assistant; Visit Provider Podiatrist Foot & Ankle Surgery | DX: S82.832A Other fracture of upper and lower end of left fibula, initial encounter for closed fracture (principal) | CPT/HCPCS: 97760; L4361 ==

== ENCOUNTER 2020-05-07 10:16 | Outpatient (CLI) | payer OTHER, SELFPAY | END 2020-05-07 10:17 | disposition home or self-care (01) | LOC: SPT 10:19 | PROVIDERS: PCP Physician Assistant; Visit Provider Podiatrist Foot & Ankle Surgery | DX: Z46.89 Encounter for fitting and adjustment of other specified devices (principal); S82.832D Other fracture of upper and lower end of left fibula, subsequent encounter for closed fracture with routine healing; X58.XXXD Exposure to other specified factors, subsequent encounter | CPT/HCPCS: 97760; L1902 ==

== ENCOUNTER 2020-05-21 14:57 | Outpatient (CLI) | payer SELFPAY ==
--- NOTE | 2020-05-21 15:06 | MR_ITS ---
WS: [id number] MRI LEFT ANKLE NONCONTRAST TECHNIQUE: Sagittal proton density, sagittal STIR, axial proton density, axial T1, axial T2 fat sat, coronal proton density, coronal proton density fat sat, coronal T2 fat sat. CLINICAL INFORMATION: pain COMPARISON: None. FINDINGS: Normal anatomic alignment. Normal ankle mortise. Normal medial and lateral malleolus. Small joint eff usion. Talar dome is normal. No evidence of avascular necrosis. Normal calcaneus. Navicular is normal in appearance. Normal cuboid and cuneiforms. No avulsion fractures. Small amount of edema along the middle talar facet Irregularity with edema involving the ATF consistent with partial tear. Edema and fluid superficial a nd deep to the ATF. Distal Achilles is normal in appearance. Tenosynovitis involving the peroneal tendon sheath at the le bigg of the ankle. This is worse involving the peroneus longus. Peroneal tendons appear intact. Normal extensor compartment tendons. Tenosynovitis along the flexor compartment tendons more prominen t involving the tibialis posterior, flexor digitorum longus. MR/MR ankle LT wo con* [id number] IMPRESSION: 1. Normal ankle mortise. No acute fractures. Normal medial and lateral malleol us. 2. Small amount of edema along the middle talar facet likely due to contusion. 3. Partial tear of the ATF with irregularity and edema. Fluid along the superf icial and deep fibers. 4. Talar dome is normal. No evidence of avascular necrosis. Normal calcaneus a nd cuneiforms. 5. Small joint effusion. 6. Tenosynovitis involving the peroneal tendons. 7. Tenosynovitis involving the tibialis posterior and flexor digitorum longus.
== END 2020-05-21 14:58 | disposition home or self-care (01) ==
PROVIDERS: PCP Physician Assistant; Visit Provider Podiatrist Foot & Ankle Surgery
DX: R60.0 Localized edema (principal); S93.492A Sprain of other ligament of left ankle, initial encounter; X58.XXXA Exposure to other specified factors, initial encounter; M25.472 Effusion, left ankle; M65.872 Other synovitis and tenosynovitis, left ankle and foot
CPT/HCPCS: 73721

== ENCOUNTER → 2020-05-29 09:43 | Outpatient (BNVA) | payer OTHER, SELFPAY | PROVIDERS: PCP Physician Assistant; Visit Provider Family Medicine | DX: Z20.828 Contact with and (suspected) exposure to other viral communicable diseases (principal) | CPT/HCPCS: 87635 ==

== ENCOUNTER → 2020-06-03 09:00 | Outpatient (BNVA) | payer OTHER, SELFPAY | PROVIDERS: PCP Physician Assistant; Visit Provider Counselor Professional | DX: F33.1 Major depressive disorder, recurrent, moderate (principal); Z63.4 Disappearance and death of family member | CPT/HCPCS: 90791 ==

== ENCOUNTER → 2020-07-16 08:39 | Outpatient (BNVA) | payer OTHER, SELFPAY | PROVIDERS: PCP Physician Assistant; Visit Provider Psychiatry & Neurology Psychiatry | DX: F41.1 Generalized anxiety disorder (principal); F43.21 Adjustment disorder with depressed mood; Z63.4 Disappearance and death of family member; F32.9 Major depressive disorder, single episode, unspecified | CPT/HCPCS: 90792 ==

== ENCOUNTER → 2020-07-18 08:45 | Outpatient (BNVA) | payer OTHER, SELFPAY | PROVIDERS: PCP Physician Assistant; Visit Provider Nurse Practitioner Family | DX: Z20.822 Contact with and (suspected) exposure to COVID-19 (principal) | CPT/HCPCS: 87426 ==

== ENCOUNTER → 2021-01-06 11:16 | Outpatient (BNVA) | payer OTHER, SELFPAY | PROVIDERS: PCP Physician Assistant; Visit Provider Nurse Practitioner Family | DX: Z20.822 Contact with and (suspected) exposure to COVID-19 (principal); J06.9 Acute upper respiratory infection, unspecified; U07.1 COVID-19 | CPT/HCPCS: 87635 ==

== ENCOUNTER → 2021-03-03 10:00 | Outpatient (BNVA) | payer BC, SELFPAY | PROVIDERS: PCP Physician Assistant; Visit Provider Obstetrics & Gynecology | DX: N87.9 Dysplasia of cervix uteri, unspecified (principal); R39.15 Urgency of urination; Z30.9 Encounter for contraceptive management, unspecified; B00.9 Herpesviral infection, unspecified | CPT/HCPCS: 87086; 88175 ==

== ENCOUNTER 2021-08-29 08:52 | Emergency (ER) | payer BC, MEDICAID, SELFPAY ==
[2021-08-29 08:58] VITALS: BP 155/88; PULSE 95; RESP 16; O2SAT 100; BMI 34.0
--- NOTE | 2021-08-29 09:23 | CTR_ITS ---
PROCEDURE INFORMATION: Exam: CT Abdomen And Pelvis With Contrast Exam date and time: 08/29/2021 10:09 AM Age: 31 years old Clinical indication: Abdominal pain; Generalized; Prior surgery; Surgery type: Gb; Additional info: Llq abd pain TECHNIQUE: Imaging protocol: Computed tomography of the abdomen and pelvis with contrast. Radiation optimization: All CT scans at this facility use at least one of these dose optimization techniques: automated exposure control; mA and/or kV adjustment per patient size (includes targeted exams where dose is matched to clinical indication); or iterative reconstruction. Contrast material: OMNI 300; Contrast volume: 95 ml; Contrast route: INTRAVENOUS (IV); COMPARISON: CT Abdomen/Pelvis Renal [id number] 03/10/2016 9:35 PM RADIATION DOSE METRICS: Total DLP (mGy-cm): 1875.21 FINDINGS: Lungs: There is a 2 mm nodule seen on image 2/2 in the anterior portion of the right lower lobe. This area is not covered on the previous exam. Liver: The liver is moderately fatty enlarged 187 mm. Gallbladder and bile ducts: The gallbladder is been removed. Pancreas: Normal. No ductal dilation. Spleen: Normal. No splenomegaly. Adrenal glands: Normal. No mass. Kidneys and ureters: Normal. No hydronephrosis. Stomach and bowel: Fluid is seen within nondilated small bowel loops possibly a mild ileus. Scattered colonic diverticula without evidence of acute diverticulitis. Appendix: The appendix is unremarkable. Intraperitoneal space: Unremarkable. No free air. No significant fluid collection. Vasculature: Unremarkable. No abdominal aortic aneurysm. Lymph nodes: Unremarkable. No enlarged lymph nodes. Urinary bladder: Unremarkable as visualized. Reproductive: Follicles are suspected involving both ovaries. Bones/joints: Unremarkable. No acute fracture. Soft tissues: Unremarkable. CT/CT abdomen pelvis w con* [id number] IMPRESSION: 1. Suspect a mild ileus. 2. Hepatomegaly. 3. Right lower lobe nodule. For patients at low risk (minimal or absent history of smoking and of other known risk factors), no routine follow-up is indicated. For patients at high risk (history of smoking or of other known risk factors), consider optional CT Chest at 12 months. (Reference: Samia) REFERENCES: Samia Mujica et al. Guidelines for Management of Incidental Pulmonary Nodules Detected on CT Images: From the Fleischner Society 2017. Radiology. 2017;284(1):228-243.
[2021-08-29 09:24] VITALS: BP 119/95; PULSE 95; RESP 16; O2SAT 100
--- NOTE | 2021-08-29 09:30 | ED_ITS ---
HPI - Abdominal Pain General: Chief Complaint: Abdominal Pain Stated Complaint: LLQ abd pain Time Seen by Provider: 08/29/21 09:05 History of Present Illness: Patient comes in with left lower quadrant abdominal pain. States she has been experiencing this pain for the past month. Describes it is off and on, worse with activity, burning sharp sensation. States that she had a a couple of years ago after which she developed some nerve pain in that area and was able to feel a knot in that area until some recent weight gain. States that she was on gabapentin for a few months but no longer takes that and has not for a couple of years. She denies fever, vomiting, diarrhea, cough, congestion, or other cold symptoms. She states in the last month she has had an ultrasound of her ovaries and uterus which were unremarkable. States the pain got significantly worse this morning. Associated Symptoms: Denies dysuria, fever(s), nausea and vomiting Related Data: Date of Last Menstrual Period: 01/17/20 Review of Systems Const: Denies: fever(s) or body aches Eyes: Denies: change in vision or blurry vision ENMT: Denies: throat pain or odynophagia Card: Denies: chest pain or palpitations Resp: Denies: dyspnea or productive cough GI: Reports: abdominal pain; Denies: nausea or vomiting : Denies: flank pain or dysuria Musc: Denies: neck pain or back pain Skin/Breast: Denies: rash or pruritus Neuro: Denies: headache(s) or numbness in extremities Psych: Denies: anxiety or change in appetite Endo: Denies: polyuria or excessive sweating PFSH ED PFSH: Medical History Anxiety and depression 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 Is currently weaning herself off the medication and states that she feels much better and more herself. She follows up with Jacey Mcfadden her primary care provider. D oes not have a therapist No pertinent past medical history Denies hypertension, asthma, seizures, diabetes, DVT/PE PCP: [facility] Surgical History H/O section (12/08/18) CLASSICAL DELIVERY performed at [facility]. Operative reports have been obtained and scanned into the chart on 02/06/2019---given small uterine size , classical hysterotomy made and the incision extended with bandage scissors. Double layer closure. H/O laparoscopy (04/01/16) 04/01/2016---diagnostic laparoscopy for chronic pain-per patient everything was normal-operative report was reviewed-normal tubes, ovaries and uterus. No endometriosis or any pathology identified. No specimen sent. History of colonoscopy (~02/2020) History of conization of cervix (03/23/19) for BRITTANY 2---> [place]. Ron [place] [facility] [place]ology showed BRITTANY-1 with negative margins and posteriorly. Post LEEP ECC was benign. History of esophagogastroduodenoscopy (EGD) (~02/2020) History of hip surgery (~2012) Hip surgery for a torn tendon in [facility] History of laparoscopic cholecystectomy (~02/2020) [place] [facility] [place] of [place]illectomy (~2007) Status post surgical removal of malignant neoplasm of skin (~2017) from head-wide local excision performed in 2018. Family History Grandmother Heart disease maternal Hypercholesteremia maternal Family history of thyroid problem maternal Diabetes maternal and paternal Hypertension maternal and paternal Grandfather Diabetes maternal Colon cancer maternal, age at diagnosis unknown Hypertension maternal and paternal Stroke maternal Mother Hypertension Father Hypertension Denies family history of Ovarian cancer Breast cancer Social History Smoking and tobacco status: never smoked Alcohol intake: current Alcohol intake frequency: holidays/special occasions only Lives independently: Yes Marital status: Single Current occupational status: employed History of recent travel: No Current gender identity: Female Female Reproductive History: Date of last menstrual period: 01/17/20 Physical Exam Const: COMMON NORMALS: no acute distress, patient oriented x3, healthy appearing and alert HENMT: COMMON NORMALS: normocephalic and atraumatic HEAD & SCALP: normocephalic and atraumatic Eye: COMMON NORMALS: Equal, round and reactive pupils present and EOMs intact bilaterally PUPIL: Yes Equal, round and reactive pupils present Neck/C-Spine: COMMON NORMALS: full ROM and supple Resp: COMMON NORMALS: normal respiratory effort, No retractions and No use of accessory muscles Cardio: COMMON NORMALS: regular rate and regular rhythm RATE: regular rate RHYTHM: regular rhythm GI: COMMON NORMALS: Normal to inspection, nondistended, normoactive bowel sounds present and Soft to palpation PALPATION: Yes Soft to palpation OTHER: Left lower quadrant severe tenderness to palpation Back/Pelvis: COMMON NORMALS: thoracic and lumbar spine normal to inspection and no thoracic nor lumbar tenderness Extremity: COMMON NORMALS: normal to inspection and full ROM Neuro: COMMON NORMALS: patient oriented x3 SENSORIUM/ORIENTATION: Yes alert Psych: COMMON NORMALS: mental status grossly normal and cooperative Skin: COMMON NORMALS: no rashes or lesions noted and no wounds GENERAL SKIN EXAM: no rashes or lesions noted Course Vital Signs: Vital signs: Vital Signs Pulse Rate 95 08/29/21 09:24 Respiratory Rate 16 08/29/21 09:24 Blood Pressure 119/95 08/29/21 09:24 Pulse Oximetry 100 08/29/21 09:24 MDM - Abdominal Pain Medical Decision Making Patient comes in with left lower quadrant abdominal pain. States she has been e xperiencing this pain for the past month. Describes it is off and on, worse with activity, burning sharp sensation. States that she had a a couple of years ago after which she developed some nerve pain in that area and was able to feel a knot in that area until some recent weight gain. States that she was on gabapentin for a few months but no longer takes that and has not for a couple of years. She denies fever, vomiting, diarrhea, cough, congestion, or other cold symptoms. She states in the last month she has had an ultrasound of her ovaries and uterus which were unremarkable. States the pain got significantly worse this morning. On physical exam she has very severe tendern ess to light palpation of her left lower quadrant. Will check labs, CT scan, treat pain with IV morphine, and reassess. On reassessment I talked to the patient about the test results. We will start her on gabapentin and discharged with precautions return for worsening or changing symptoms. Will advise her to follow-up with her primary care physician. Lab Data : 08/29/21 09:41 08/29/21 10:42 Labs/Radiology: Radiology Impressions Abdomen/Pelvis CT 08/29/21 09:23 IMPRESSION: 1. Suspect a mild ileus. 2. Hepatomegaly. 3. Right lower lobe nodule. For patients at low risk (minimal or absent history of smoking and of other known risk factors), no routine follow-up is indicated. For patients at high risk (history of smoking or of other known risk factors), consider optional CT Chest at 12 months. (Reference: Samia) REFERENCES: Samia Mujica, et al. Guidelines for Management of Incidental Pulmonary Nodules Detected on CT Images: From the Fleischner Society 2017. Radiology. 2017;284(1):228-243. Laboratory Results WBC 7.8 10^3/uL (4.0-10.0) 08/29/21 09:41 RBC 4.68 10^6/uL (4.1-5.3) 08/29/21 09:41 Hgb 14.1 g/dL (11.5-15.3) 08/29/21 09:41 Hct 42.3 % (37.0-47.0) 08/29/21 09:41 MCV 90.4 fl (81-99) 08/29/21 09:41 MCH 30.1 pg (28.0-34.0) 08/29/21 09:41 MCHC 33.3 g/dL (30.0-36.0) 08/29/21 09:41 RDW 11.8 % (12.1-15.1) L 08/29/21 09:41 Plt Count 230 10^3/cmm (130-400) 08/29/21 09:41 MPV 11.2 fL (7.4-10.4) H 08/29/21 09:41 Neut % (Auto) 51.7 % 08/29/21 09:41 Lymph % (Auto) 37.1 % 08/29/21 09:41 [place] % (Auto) 7.1 % 08/29/21 09:41 Eos % (Auto) 3.3 % 08/29/21 09:41 Baso % (Auto) 0.4 % 08/29/21 09:41 Neut # (Auto) 4.04 10^3/uL (1.8-7.7) 08/29/21 09:41 Lymph # (Auto) 2.9 10^3/uL (0.8-4.8) 08/29/21 09:41 [place] # (Auto) 0.6 10^3/uL (0.2-0.9) 08/29/21 09:41 Eos # (Auto) 0.3 10^3/uL (0.0-0.8) 08/29/21 09:41 Baso # (Auto) 0.0 10^3/uL (0.0-0.1) 08/29/21 09:41 Nucleated RBC % (auto) 0 % 08/29/21 09:41 Nucleated RBCs # 0.0 /100WBC 08/29/21 09:41 Sodium 135 mmol/L (136-145) L 08/29/21 10:42 Potassium 3.6 mmol/L (3.5-5.1) 08/29/21 10:42 Chloride 101 mmol/L (98-107) 08/29/21 10:42 Carbon Dioxide 21 mmol/L (22-29) L 08/29/21 10:42 Anion Gap 16.6 (5-19) 08/29/21 10:42 BUN 11 mg/dL (6-20) 08/29/21 10:42 Creatinine 0.5 mg/dL (0.5-0.9) 08/29/21 10:42 GFR Calculation 144.9 mL/min (90-130) H 08/29/21 10:42 Glucose 86 mg/dL (65-115) 08/29/21 10:42 Calculated Osmolality 279 mOsm/kg (285-295) L 08/29/21 10:42 Calcium 9.1 mg/dL (8.5-10.5) 08/29/21 10:42 Total Bilirubin 0.5 mg/dL (0.15-1.2) 08/29/21 10:42 AST 23 U/L (0-32) 08/29/21 10:42 ALT 23 U/L (0-33) 08/29/21 10:42 Alkaline Phosphatase 72 IU/L (35-105) 08/29/21 10:42 Total Protein 6.9 g/dL (6.6-8.7) 08/29/21 10:42 Albumin 4.1 g/dL (3.5-5.2) 08/29/21 10:42 Globulin 2.8 g/dL (1.3-4.6) 08/29/21 10:42 HCG, Qual Negative (Negative) 08/29/21 09:16 Urine Color Straw (Yellow) 08/29/21 09:16 Urine Appearance Clear (CLEAR) 08/29/21 09:16 Urine pH 6.5 (5-7) 08/29/21 09:16 Ur Specific [place] 1.005 (1.005-1.030) 08/29/21 09:16 Urine Protein Neg (Negative) 08/29/21 09:16 Urine Glucose (UA) Norm (Normal) 08/29/21 09:16 Urine Ketones Negative (Negative) 08/29/21 09:16 Urine Blood Neg (Negative) 08/29/21 09:16 Urine Nitrate Negative (Negative) 08/29/21 09:16 Urine Bilirubin Neg (Negative) 08/29/21 09:16 Urine Urobilinogen Norm mg/dL (Negative) 08/29/21 09:16 Ur Leukocyte Esterase Negative (Negative) 08/29/21 09:16 Discharge Plan Discharge Patient Disposition: Home Clinical Impression: Abdominal pain Condition: Stable Prescriptions: New gabapentin 300 mg capsule 300 mg PO BID 1 Days Qty: 180 0RF Rx Instructions: Take 300 mg PO bid tomorrow, then 300 mg PO TID on day three, then 600 mg PO TID after Discharge Orders: Discharge ED (Routine); Ordered 08/29/21 Ordered By: Kobe Gan Referrals: Sujata Shah FNP-C [Primary Care Provider] - Patient Instructions: Gabapentin (By mouth), Abdominal Pain (ED) Coding Level of Care Code 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
[2021-08-29 09:36] LABS: HCG Qualitative Urine. Negative (Negative)
[2021-08-29] MEDS: ondansetron 2 mg/ML SDV 2 mL 4 MG IVP (09:43)
[2021-08-29] MEDS: morphine 4 mg/mL SDV 1 mL IVP (09:45)
[2021-08-29 09:49] LABS: Add Urine Microscopic? NO; Charge for UA Resulting for Rev
[2021-08-29 09:53] LABS: Basophils % 0.4 %; Eosinophils # 0.3 10^3/uL (0.0-0.8); Eosinophils % 3.3 %; Hematocrit 42.3 % (37.0-47.0); Hemoglobin 14.1 g/dL (11.5-15.3); Lymphocytes # 2.9 10^3/uL (0.8-4.8); Lymphocytes % 37.1 %; Mean Corpuscular HGB Conc 33.3 g/dL (30.0-36.0); Mean Corpuscular Hemoglobin 30.1 pg (28.0-34.0); Mean Corpuscular Volume 90.4 fl (81-99); Mean Platelet Volume 11.2 fL (7.4-10.4); Monocytes # 0.6 10^3/uL (0.2-0.9); Monocytes % 7.1 %; Neutrophils # 4.04 10^3/uL (1.8-7.7); Neutrophils % 51.7 %; Nucleated Red Blood Cells % 0 %; Platelet Count 230 10^3/cmm (130-400); Red Blood Count 4.68 10^6/uL (4.1-5.3); Red Cell Distribution Width 11.8 % (12.1-15.1); White Blood Count 7.8 10^3/uL (4.0-10.0)
[2021-08-29 09:54] LABS: Urine Appearance Clear (CLEAR); Urine Color Straw (Yellow); pH Urine 6.5 (5-7)
[2021-08-29 09:55] LABS: Bilirubin Urine Neg (Negative); Blood Urine Neg (Negative); Glucose Urine UA Norm (Normal); Ketones Urine Negative (Negative); Leukocyte Esterase Urine Negative (Negative); Nitrate Urine Negative (Negative); Protein Urine Neg (Negative); Specific Gravity, Urine 1.005 (1.005-1.030); Urobilinogen Urine Norm (Negative)
[2021-08-29] MEDS: iohexol 300 mg/mL 100 mL Btl IV (10:15)
[2021-08-29] MEDS: ketorolac 30 mg/mL INJ IVP (10:35)
[2021-08-29] MEDS: gabapentin 300 mg Capsule PO (10:36)
[2021-08-29] MEDS: lidocaine 2% viscous 15 ML, aluminum-mag hydrox-simethicon 30 ML, sucralfate oral liq 1 GM PO (11:06)
[2021-08-29 11:17] LABS: Alanine Aminotransferase 23 U/L (0-33); Albumin Level 4.1 g/dL (3.5-5.2); Alkaline Phosphatase 72 IU/L (35-105); Anion Gap 16.6 (5-19); Aspartate Amino Transferase 23 U/L (0-32); Blood Urea Nitrogen 11 mg/dL (6-20); Calcium 9.1 mg/dL (8.5-10.5); Carbon Dioxide 21 mmol/L (22-29); Chloride 101 mmol/L (98-107); Globulin 2.8 g/dL (1.3-4.6); Glomerular Filtration Rate 144.9 mL/min (90-130); Glucose 86 mg/dL (65-115); Osmolality Calculated 279 mOsm/kg (285-295); Potassium 3.6 mmol/L (3.5-5.1); Sodium 135 mmol/L (136-145); Total Bilirubin 0.5 mg/dL (0.15-1.2); Total Protein 6.9 g/dL (6.6-8.7)
[2021-08-29] MEDS: diazePAM 5 mg Tablet PO (11:36)
[2021-08-29 11:40] VITALS: BP 120/88; PULSE 88; RESP 20; O2SAT 100
== END 2021-08-29 11:41 | disposition home or self-care (01) ==
PROVIDERS: Emergency Provider Emergency Medicine; PCP Nurse Practitioner Family
DX: R10.9 Unspecified abdominal pain (principal)
CPT/HCPCS: 74177; 80053; 81003; 81025; 85025; 96374; 96375; 99283; J1885; J2270; J2405; Q9967

== ENCOUNTER 2022-03-31 07:08 | Outpatient (CLI) | payer MEDICAID, SELFPAY ==
[2022-03-31 07:11] VITALS: RESP 18; BMI 36.3
[2022-03-31 07:20] VITALS: BP 111/69; PULSE 82
[2022-03-31 07:35] VITALS: BP 117/67; PULSE 73
[2022-03-31 07:39] LABS: Add Urine Culture? No; Bacteria Urine TRACE /hpf; Bilirubin Urine Neg (Negative); Blood Urine Neg (Negative); Glucose Urine UA Norm (Normal); Ketones Urine Negative (Negative); Leukocyte Esterase Urine Negative (Negative); Nitrate Urine Negative (Negative); Protein Urine Neg (Negative); RBC Urine RARE /hpf (0-2); Specific Gravity, Urine 1.005 (1.005-1.030); Squamous Epithelial Cell Urine RARE /hpf (0-5); Urine Appearance Clear (CLEAR); Urine Color Straw (Yellow); Urobilinogen Urine Norm (Negative); WBC Urine RARE /hpf (0-5); pH Urine 7 (5-7)
[2022-03-31 07:50] VITALS: BP 109/60; PULSE 73
[2022-03-31 08:05] VITALS: BP 120/68; PULSE 80
[2022-03-31 08:20] VITALS: BP 103/61; PULSE 69
== END 2022-03-31 08:25 | disposition home or self-care (01) ==
LOC: OPOB 07:09 → OBGYN 07:10
PROVIDERS: PCP Nurse Practitioner Family; Visit Provider Family Medicine
DX: O26.899 Other specified pregnancy related conditions, unspecified trimester (principal); R10.9 Unspecified abdominal pain; R11.0 Nausea
CPT/HCPCS: 81001; 99211

== ENCOUNTER 2022-05-25 05:09 | Inpatient (IN) | payer OTHER, MEDICAID, SELFPAY ==
--- NOTE | 2022-05-18 15:52 | ANES.PREANE2 ---
Pre-Anesthetic Assessment Height/Weight: Height 1.77 m Preop Diagnosis: Abdominal pain and constipation Operation Date: 05/25/22 07:00 Proposed Procedures p Section(Not Applicable) - Kobe Meredith MD Familial anesthetic complications: none Was Beta Carissa taken within 24 hours: N/A Was Clonidine taken within 24 hours: N/A Social No alcohol and No tobacco Exam alert, oriented x 3, clear to auscultation bilaterally and regular rate & rhythm Airway Submandibular: within normal limits Cervical ROM: within normal limits Mallampati: Class II Dentition: full Neuropsych Anxiety and Depression Anesthetic Plan ASA status: 2 Anesthesia: Regional (specify below) (SAB) Other: Previous C/S with demise, lots of postop pain and anxiety Medications/Allergies Home Medications Medication Instructions Recorded Confirmed Last Taken Type [id number] 1 mg 1 tab PO 1XD 03/31/22 03/31/22 03/30/22 22:00 History tablet Allergies Allergy/AdvReac Type Severity Reaction Status Date / Time tramadol AdvReac Respiratory Verified 09/29/21 11:45 distress-can take ibuprofen [facility] Anesthesia Medical History (Updated 03/09/22 @ 11:30 by Edilia Agarwal) Anxiety and depression 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 Is currently weaning herself off the medication and states that she feels much better and more herself. She follows up with Jacey Mcfadden her primary care provider. Does not have a therapist No pertinent past medical history Denies hypertension, asthma, seizures, diabetes, DVT/PE PCP: [facility] History H/O section (12/08/18) CLASSICAL DELIVERY performed at [facility]. Operative reports have been obtained and scanned into the chart on 02/06/2019---given small uterine size , classical hysterotomy made and the incision extended with bandage scissors. Double layer closure. H/O laparoscopy (04/01/16) 04/01/2016---diagnostic laparoscopy for chronic pain-per patient everything was normal-operative report was reviewed-normal tubes, ovaries and uterus. No endometriosis or any pathology identified. No specimen sent. History of colonoscopy (~02/2020) History of conization of cervix (03/23/19) for BRITTANY 2--[place] [facility] [place] showed BRITTANY-1 with negative margins and posteriorly. Post LEEP ECC was benign. History of esophagogastroduodenoscopy (EGD) (~02/2020) History of hip surgery (~2012) Hip surgery for a torn tendon in [facility] History of laparoscopic cholecystectomy (~02/2020[place] [facility] [place]illect[place] (~[place]) Status post surgical removal of malignant neoplasm of skin (~2017) from head-wide local excision performed in 2018. Family History Grandmother Heart disease maternal Hypercholesteremia maternal Family history of thyroid problem maternal Diabetes maternal and paternal Hypertension maternal and paternal Grandfather Diabetes maternal Colon cancer maternal, age at diagnosis unknown Hypertension maternal and paternal Stroke maternal Mother Hypertension Father Hypertension Denies family history of Ovarian cancer Breast cancer Social History Smoking and tobacco status: former smoker Alcohol intake: current Alcohol intake frequency: holidays/special occasions only Lives independently: Yes Marital status: Single Current occupational status: employed History of recent travel: No Current gender identity: Female Female Reproductive History Date of last menstrual period: 08/16/21 Data Anesthesia Cardiac Studies: No Data to Display
[2022-05-25] VITALS (27 sets, daily range): BP systolic 92–133; BP diastolic 54–75; PULSE 52–88; RESP 16–17; TEMP 30.2–36.7; O2SAT 97–99; BMI 38.0
[2022-05-25] MEDS: lactated ringers 1,000 ML 999 ML IV (06:00)
[2022-05-25 06:12] LABS: Basophils % 0.3 %; Eosinophils # 0.1 10^3/uL (0.0-0.8); Eosinophils % 0.9 %; Hematocrit 34.6 % (37.0-47.0); Hemoglobin 11.6 g/dL (11.5-15.3); Mean Corpuscular HGB Conc 33.5 g/dL (30.0-36.0); Mean Corpuscular Hemoglobin 28.4 pg (28.0-34.0); Mean Corpuscular Volume 84.6 fl (81-99); Mean Platelet Volume 11.5 fL (7.4-10.4); Monocytes # 0.5 10^3/uL (0.2-0.9); Monocytes % 5.5 %; Neutrophils # 6.94 10^3/uL (1.8-7.7); Neutrophils % 71.5 %; Nucleated Red Blood Cells % 0 %; Platelet Count 211 10^3/cmm (130-400); Red Blood Count 4.09 10^6/uL (4.1-5.3); Red Cell Distribution Width 12.5 % (12.1-15.1); White Blood Count 9.7 10^3/uL (4.0-10.0)
--- NOTE | 2022-05-25 06:37 | PM.OBGYHP ---
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 She also has a history of a infant congenital abnormalities. During this she has been evaluated by [facility] in [place] including multiple level 2 ultrasounds given her history. Her has been relatively unremarkable otherwise. Her labs are as follows. Her blood type is B+. Her antibody screen is negative. She failed her initial glucose screen, but passed her 3-hour. She is rubella immune. The remainder of her infectious disease profile was within normal limits. The patient also desires an intraoperative bilateral tubal ligation. And we have discussed the risks and alternatives. Present Details Date of Last Menstrual Period: 08/16/21 Calculated Date of Delivery: 05/23/22 Gestational Age Based on Last Menstrual Period: 40 Review of Systems General: Reports: 10 or more systems reviewed and unremarkable except in HPI and below Const: Reports: fatigue; Denies: fever(s) Eyes: Denies: change in vision Card: Denies: chest pain Musc: Reports: back pain Psych: Reports: anxiety Rony/Lymph: Denies: easy bruising Medications/Allergies Home Medications Medication Instructions Recorded Confirmed Last Taken Type sqrdfelw-eoo-Ov-FA 1 mg 1 tab PO 1XD 03/31/22 03/31/22 03/30/22 22:00 History tablet Allergies Allergy/AdvReac Type Severity Reaction Status Date / Time tramadol AdvReac Respiratory Verified 09/29/21 11:45 distress-can take ibuprofen 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 Is currently weaning herself off the medication and states that she feels much better and more herself. She follows up with Jacey Mcfadden her primary care provider. Does not have a therapist No pertinent past medical history Denies hypertension, asthma, seizures, diabetes, DVT/PE PCP: Jayda Surgical History H/O section (12/08/18) CLASSICAL DELIVERY performed at [facility]. Operative reports have been obtained and scanned into the chart on 02/06/2019---given small uterine size , classical hysterotomy made and the incision extended with bandage scissors. Double layer closure. H/O laparoscopy (04/01/16) 04/01/2016---diagnostic laparoscopy for chronic pain-per patient everything was normal-operative report was reviewed-normal tubes, ovaries and uterus. No endometriosis or any pathology identified. No specimen sent. History of colonoscopy (~02/2020) History of conization of cervix (03/23/19) for BRITTANY 2---> performed by Dr. Ron at [facility] [place]. Pathology showed BRITTANY-1 with negative margins and posteriorly. Post LEEP ECC was benign. History of esophagogastroduodenoscopy (EGD) (~02/2020) History of hip surgery (~2012) Hip surgery for a torn tendon in [facility] History of laparoscopic cholecystectomy (~02/2020) dr. ram[facility]rez[place] [facility] [place] Hx of tonsillectomy (~2007) Status post surgical removal of malignant neoplasm of skin (~2017) from head-wide local excision performed in 2018. Family History Grandmother Heart disease maternal Hypercholesteremia maternal Family history of thyroid problem maternal Diabetes maternal and paternal Hypertension maternal and paternal Grandfather Diabetes maternal Colon cancer maternal, age at diagnosis unknown Hypertension maternal and paternal Stroke maternal Mother Hypertension Father Hypertension Denies family history of Ovarian cancer Breast cancer Social History Smoking and tobacco status: former smoker Alcohol intake: current Alcohol intake frequency: holidays/special occasions only Lives independently: Yes Marital status: Single Current occupational status: employed History of recent travel: No Current gender identity: Female Other Female Reproductive History: Hx Age of Menarche: 12 History History History 3 Term 0 1 Miscarriages/Ectopic 1 Living Children 0 Vitals/I&O/Wt Last Vital Signs Pulse 88 05/25/22 06:27 BP 129/70 05/25/22 06:27 O2 Del Method 05/25/22 05:15 Weight last 48 hrs Weight 258 lb Physical Exam Const: COMMON NORMALS: patient oriented x3 and alert HENMT: COMMON NORMALS: moist oral mucous membranes HEAD & SCALP: normal to inspection Chest: COMMONS NORMALS: normal inspection of the chest Resp: COMMON NORMALS: clear to auscultation bilaterally AUSCULTATION: clear to auscultation bilaterally Cardio: COMMON NORMALS: regular rate and regular rhythm RATE: regular rate RHYTHM: regular rhythm GI: INSPECTION: Yes normal to inspection and Yes other (Gravid) Extremity: COMMON NORMALS: normal to inspection GENERAL: Yes edema (Trace) Neuro: COMMON NORMALS: patient oriented x3, moves all extremities and no sensory deficits noted SENSORIUM/ORIENTATION: Yes alert Psych: COMMON NORMALS: mental status grossly normal Skin: COMMON NORMALS: no rashes or lesions noted GENERAL SKIN EXAM: no rashes or lesions noted Data 05/25/22 05:55 A&P Assessment and plan (1) History of classical section: We are proceeding with a section at 36 weeks to minimize the risk of a uterine rupture. We have discussed the risks of bleeding, infection, and damage to intra-abdominal organs. The patient has no further questions (2) 36 weeks gestation of : (3) Encounter for sterilization: We have discussed the risks and alternatives, including the 1 and 200 chance of becoming again despite a successful tubal ligation. We have also discussed the increased risk of a ectopic . She has no further questions and wishes to proceed Attestations Medical Necessity Statement*: Anticipate routine /tubal and post /tubal care. Coding Level of Care Code Acute Pearl Peller for [facility] Diagnoses History of classical section Z98.891 36 weeks gestation of Z3A.36 Encounter for sterilization Z30.2
[2022-05-25] MEDS: famotidine 20 mg/2 mL INJ IVP (06:50)
[2022-05-25] MEDS: citric acid-sodium citrate 30 mL UDC PO (06:51)
[2022-05-25] MEDS: metoclopramide 5 mg/mL SDV 2 mL 10 MG IVP (06:51)
--- NOTE | 2022-05-25 06:51 | P.ANESUD_ITS ---
Pre-Anesthetic Update Pre-Anesthetic Assessment: Date of Surgery/Procedure: 05/25/22 Preop Kristin gnosis: Abdominal pain and constipation Proposed Procedure: Operation Date: 05/25/22 07:00 Proposed Procedures p Section(Not Applicable) - Kobe Meredith MD Any changes to Pre-Anesthetic Assessment?: No Last Intake: Intake Last Liquid Date 05/25/22 Last Liquid Time 04:00 Last Solid Date 05/24/22 Last Solid Time 23:00 Last Intake: 04:00 Labs Last 48hrs: Short CBC 05/25/22 Range/Units 05:55 WBC 9.7 (4.0-10.0) 10^3/ uL Hgb 11.6 (11.5-15.3) g/dL Hct 34.6 L (37.0-47.0) % MCV 84.6 (81-99) fl Plt Count 211 (130-400) 10^3/c mm Neut % (Auto) 71.5 % Neut # (Auto) 6.94 (1.8-7.7) 10^3/u L Vitals: Pulse Rate 77 05/25/22 06:47 Pulse Rhythm 05/25/22 05:15 Respiratory Effort Non-Labored 05/25/22 05:15 Respiratory Depth Normal 05/25/22 05:15 Respiratory Patter n 05/25/22 05:15 Blood Pressure 130/64 05/25/22 06:47 Oxygen Delivery Me thod 05/25/22 05:15 Exam: Pre-Anes Outpt Exam: alert, oriented x 3, clear to auscultation bilaterally and regular rate & rhythm Cardiac Studies: No Data to Display
--- NOTE | 2022-05-25 08:47 | P.OP_ITS ---
Operative Report Date of procedure: May 25, 2022 Pre-op diagnosis: 1. 31-year-old 3 para 0-1-1-0 at 36 weeks estimated gestational age presenting for a repeat section and a bilateral tubal ligation Post-op diagnosis: same Procedure done: Lower transverse section Intraoperative bilateraltubal ligation Specimens removed/disposition: 1. Female with a weight of 5 pounds 13 ounces and Apgars of 6 and 8 delivered from a footling breech position 2. Placenta with a three-vessel cord delivered intact 3. Bilateral fallopian tube segments with the right segment being tagged Pathology: 1. Bilateral fallopian tube segments with the right segment being tagged 2. Placenta Surgeon: Kobe Meredith Anesthesia: Other (Spinal) Estimated blood loss (mL): 800 Procedure: The patient was brought back to the operating room where she was prepped and draped in usual sterile fashion. Anesthesia was found to be adequate. A lower transverse skin incision was then made with a #10 blade. I then dissected down to the underlying subcutaneous tissue until arriving at the prerectal fascia. The fascia was then nicked with the scalpel bilaterally. The fascial incisions were then carried laterally with Armenta scissors. Attention was then turned to the superior aspect of the incision which was grasped with kochers and tented up away from the underlying rectus abdominis muscles. The muscles were then dissected away from the fascia manually, and later with Armenta scissors. Attention was then turned to the inferior aspect of the incision, and the fascia was dissected away from the underlying muscle in similar fashion. The rectus abdominis muscles were then spread manually. The peritoneum was entered manually. Excellent visualization of the uterus was noted. A lower transverse uterine incision was then made with a #10 blade. Upon arriving at the intrauterine cavity, the uterine incision was then extended manually. The was noted to be in vertex position. The baby was delivered without difficulty from a footling breech position and placed on the abdomen. There was no meconium. There was no nuchal cord. The cord was cut and clamped. The baby was then handed to Dr. Clayton. The placenta was removed intact. The placenta was more adherent than usual on the posterior aspect of the uterus. I was able to dissect it away manually, and minimal bleeding was noted. The uterus was externalized. The intrauterine cavity was cleansed of any remaining debris. The uterine incision was reapproximated in 2 layers. The first layer was performed with 0 Vicryl in a running locked stitch. The second layer was an imbricating stitch also using 0 Vicryl. I then placed several [id number] stitches to stop bleeding along the incision, and used some cautery for some superficial bleeding as well. Attention was then turned to the fallopian tubes. First I ligated cut and cauterized the left fallopian tube with 0 chromic, then turned my attention to the right fallopian tube which was also ligated cut and cauterized in a modified Wimberley fashion. The uterus was replaced into the abdomen. The peritoneum was then irrigated with warm saline. I reexamined the uterine incision and found it to be hemostatic. The rectus abdominis muscles were then reapproximated using 0 Vicryl in a running stitch. The fascia was then reapproximated using 0 Vicryl in running stitch. The skin was reapproximated using chary. A sterile dressing was placed. All counts were correct x2. Both the mother and baby were in stable condition.
[2022-05-25] MEDS: oxyCODONE-APAP 5-325 mg Tablet PO (12:42)
--- NOTE | 2022-05-25 12:56 | PC.NURSE ---
pt in OR
--- NOTE | 2022-05-25 12:56 | PC.NURSE ---
pt in OR
--- NOTE | 2022-05-25 12:56 | PC.NURSE ---
this nurse transporting pt from OR to room, pt in bed, instructed to not get out of bed. pt is bedrest
--- NOTE | 2022-05-25 14:19 | PC.NURSE ---
this nurse took pt via wheelchair to nursery. pt instructed not to get up without assistance. pt agreed
[2022-05-25] MEDS: ketorolac 30 mg/mL INJ IVP ×2 (14:42→20:41)
[2022-05-25] MEDS: dextrose 5%-lactated ringers 1,000 ML 125 ML IV (15:05)
--- NOTE | 2022-05-25 16:40 | ANE.PACU2 ---
Inpatient post-anesthesia follow up: Airway intact: Yes Vital signs: Temperature 96.6 F Pulse Rate 70 Respiratory Rate 16 Blood Pressure 131/64 Pulse Oximetry 97 Oxygen Delivery Me thod Room Air Oxygen Flow Rate Fraction of Inspir ed Oxygen Hydration adequate: Yes Nausea and vomiting: No Pain level: 1 Mental status: Baseline
[2022-05-25 20:52] LABS: Hematocrit 31.4 % (37.0-47.0); Hemoglobin 10.6 g/dL (11.5-15.3); Mean Corpuscular HGB Conc 33.8 g/dL (30.0-36.0); Mean Corpuscular Volume 85.8 fl (81-99); Mean Platelet Volume 11.5 fL (7.4-10.4); Platelet Count 180 10^3/cmm (130-400); Red Blood Count 3.66 10^6/uL (4.1-5.3); Red Cell Distribution Width 12.6 % (12.1-15.1); White Blood Count 9.5 10^3/uL (4.0-10.0)
[2022-05-26] VITALS (11 sets, daily range): BP systolic 108–131; BP diastolic 56–66; PULSE 71–92; RESP 15–17; TEMP 35.7–35.9
[2022-05-26] MEDS: oxyCODONE-APAP 5-325 mg Tablet PO ×5 (00:40→20:44)
[2022-05-26] MEDS: ketorolac 30 mg/mL INJ IVP (03:14)
--- NOTE | 2022-05-26 07:27 | PM.OBGYPN ---
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 Her pain is well controlled. Her bleeding has been within normal limits. Breast-feeding has been somewhat challenging due to the gestational age of her infant. She has been ambulating appropriately. Her urine outputs been excellent. She has passed flatus. She is tolerating a regular diet. Labor: Monitor Mode: External Contraction Pattern: Absent Vitals/I&O/Wt Last Vital Signs Temp 96.6 F L 05/25/22 14:55 Pulse 71 05/26/22 05:04 Resp 16 05/26/22 05:02 BP 108/58 05/26/22 05:04 Pulse Ox 97 05/25/22 09:10 O2 Del Method 05/25/22 09:10 05/25/22 05/26/22 05/26/22 22:59 06:59 14:59 Intake Total 489.583 / 9544.332 0482 / 3539.583 Output Total 200 / 450 900 / 1350 Balance 289.583 / 3892.675 7876 / 2189.583 Weight last 48 hrs Weight 258 lb Physical Exam Narrative: She is in no acute distress Lungs are clear auscultation bilaterally Her heart has a regular rate and rhythm Her fundus is below the umbilicus and firm Her dressing is clean, dry and intact Her extremities have trace edema Urinary Catheter Management: Do: Cath Placed During This Visit: yes, but has since been removed by the nurse Reason for Continuing Indwelling Catheter: Perioperative Use in Selected Surgeries Urinary Catheter Date of Insertion: 05/25/22 Urinary Catheter Time of Insertion: 07:15 Date Urinary Catheter Removed: 05/25/22 Time Urinary Catheter Discontinued: 21:00 Data 05/25/22 20:39 A&P Assessment and plan (1) 36 weeks gestation of : (2) Status post : The patient is recovering very well. I anticipate the patient will be discharged home when her infant is discharged in 1 to 2 days (3) Status post tubal ligation at time of delivery, current hosp: Attestations Medical Necessity Statement*: Routine post care Coding Level of Care Code Acute Business Technology Teacher for Chg Fwd Diagnoses 36 weeks gestation of Z3A.36 Status post Z98.891 Status post tubal ligation at time of delivery, current hosp O80; Z30.2
[2022-05-26] MEDS: ferrous sulfate EC 325 mg Tablet PO ×2 (09:57→20:44)
[2022-05-26] MEDS: ibuprofen 800 mg tablet PO ×3 (09:57→20:44)
[2022-05-26] MEDS: docusate sodium 100 mg Capsule PO ×2 (09:57→20:44)
[2022-05-26] MEDS: escitalopram 10 mg Tablet 5 MG PO (13:05)
[2022-05-26] MEDS: prenatal vitamin Capsule 1 CAP PO (13:07)
[2022-05-26] MEDS: simethicone 80 mg Chew PO (14:15)
[2022-05-27] VITALS (7 sets, daily range): BP systolic 113–116; BP diastolic 58–59; PULSE 70–71; RESP 16–18; TEMP 36.6
[2022-05-27] MEDS: oxyCODONE-APAP 5-325 mg Tablet PO ×3 (00:36→10:13)
--- NOTE | 2022-05-27 07:04 | P.DS_ITS ---
Discharge Providers COMMUNITY HEALTH NURSE Date of Admission: 05/25/22 05:09 Date of Discharge: 05/28/22 Attending Provider at Admission: Kobe Meredith MD Attending Provider at Discharge: Kobe Meredith MD Diagnoses at Discharge Discharge Diagnosis (1) 36 weeks gestation of : Status: Resolved (2) Status post : Status: Inactive (3) Status post tubal ligation at time of delivery, current hosp: Status: Inactive Reason for Visit Reason for Visit: EDC 06/20/21 Hospital Course Hospital Course Patient presented to the hospital for a repeat section and a bilateral tubal ligation. The procedure was unremarkable. The patient's course was also unremarkable. Her pain was well controlled. Her bleeding was within normal limits. She passed flatus and had her diet advanced. She tolerated food well. There were no concerns. Information Peripartum Data: Infant Delivery Method: Physical Exam Narrative: The patient is alert. She appears comfortable. Her heart has a regular rate and rhythm with no murmurs appreciated. Lungs are clear to auscultation bilaterally. Her fundus is firm and below the umbilicus. Urinary Catheter Management: Do: Cath Placed During This Visit: yes, but has since been removed by the nurse Reason for Continuing Indwelling Catheter: Perioperative Use in Selected Surgeries Urinary Catheter Date of Insertion: 05/25/22 Urinary Catheter Time of Insertion: 07:15 Date Urinary Catheter Removed: 05/25/22 Time Urinary Catheter Discontinued: 21:00 History History History 3 Term 0 1 Miscarriages/Ectopic 1 Living Children 0 Discharge Data Studies Completed and Pending Pending at discharge Category Date Time Status Pathology: Surgical [PTH] Stat Pth 05/25/22 11:37 Received Laboratory Results WBC 9.5 10^3/uL (4.0-10.0) 05/25/22 20:39 RBC 3.66 10^6/uL (4.1-5.3) L 05/25/22 20:39 Hgb 10.6 g/dL (11.5-15.3) L 05/25/22 20:39 Hct 31.4 % (37.0-47.0) L 05/25/22 20:39 MCV 85.8 fl (81-99) 05/25/22 20:39 MCH 29.0 pg (28.0-34.0) 05/25/22 20:39 MCHC 33.8 g/dL (30.0-36.0) 05/25/22 20:39 RDW 12.6 % (12.1-15.1) 05/25/22 20:39 Plt Count 180 10^3/cmm (130-400) 05/25/22 20:39 MPV 11.5 fL (7.4-10.4) H 05/25/22 20:39 Neut % (Auto) 71.5 % 05/25/22 05:55 Lymph % (Auto) 21.0 % 05/25/22 05:55 [place] % (Auto) 5.5 % 05/25/22 05:55 Eos % (Auto) 0.9 % 05/25/22 05:55 Baso % (Auto) 0.3 % 05/25/22 05:55 Neut # (Auto) 6.94 10^3/uL (1.8-7.7) 05/25/22 05:55 Lymph # (Auto) 2.0 10^3/uL (0.8-4.8) 05/25/22 05:55 [place] # (Auto) 0.5 10^3/uL (0.2-0.9) 05/25/22 05:55 Eos # (Auto) 0.1 10^3/uL (0.0-0.8) 05/25/22 05:55 Baso # (Auto) 0.0 10^3/uL (0.0-0.1) 05/25/22 05:55 Nucleated RBC % (auto) 0 % 05/25/22 05:55 Nucleated RBCs # 0.0 /100WBC 05/25/22 05:55 Blood Type B Positive 05/25/22 05:55 Rho(D) Type Positive 05/25/22 05:55 Antibody Screen Negative 05/25/22 05:55 Vitals Last Vital Signs Temp 96.6 F L 05/26/22 15:55 Pulse 70 05/27/22 04:33 Resp 16 05/27/22 04:53 BP 116/58 05/27/22 04:33 Pulse Ox 97 05/25/22 09:10 O2 Del Method 05/25/22 09:10 Discharge Plan Discharge Patient Disposition: Home Condition: Stable Prescriptions: New ibuprofen 800 mg Tablet 800 mg PO TID Qty: 45 0RF oxycodone-acetaminophen 5-325 mg Tablet 1 tab PO Q4H PRN (Reason: Moderate To Severe Pain) Qty: 28 0RF docusate sodium 100 mg Capsule 100 mg PO BID Qty: 10 0RF Continued escitalopram oxalate 5 mg tablet 5 mg PO DAILY jshuapjc-bgc-Iv-FA 1 mg Tablet 1 tab PO 1XD Discontinued ondansetron HCl [Zofran] 4 mg Tablet 4 mg PO Q6H famotidine 20 mg tablet 20 mg PO BID PRN (Reason: Heartburn) Discharge Orders: Discharge Order (Routine); Ordered 05/27/22 Ordered By: Kobe Meredith Referrals: Kobe Meredith MD [Physician] - 06/02/22 7:45 am Discharge Diet: Usual diet Discharge Activity: Limit activity as instructed Patient Instructions: Depression (DC), Bleeding (DC), Preeclampsia and Eclampsia After Delivery (GEN), OB - Viri/Jayda, OB Discharge Report, OB Food/Drug Interaction Guide, Opioid Safety, OB Post Home Care Discharge Attestations COMMUNITY HEALTH NURSE Time Spent in Discharge Care*: less than 30 min Coding Level of Care Code Acute Direct Sales Representative for Chg Fwd Diagnoses 36 weeks gestation of Z3A.36 Status post Z98.891 Status post tubal ligation at time of delivery, current hosp O80; Z30.2
[2022-05-27] MEDS: docusate sodium 100 mg Capsule PO (10:12)
[2022-05-27] MEDS: escitalopram 10 mg Tablet 5 MG PO (10:13)
[2022-05-27] MEDS: ibuprofen 800 mg tablet PO (10:13)
[2022-05-27] MEDS: ferrous sulfate EC 325 mg Tablet PO (10:13)
== END 2022-05-27 11:35 | disposition home or self-care (01) | DRG 785 ==
PROVIDERS: Admitting Provider Family Medicine; PCP Nurse Practitioner Family; Visit Provider Family Medicine
PROC: 10D00Z1 Extraction of Products of Conception, Low, Open Approach (ICD-10-PCS; CPT 59514; principal; 2022-05-25 07:00)
DX: O34.212 Maternal care for vertical scar from previous cesarean delivery (principal); Z3A.36 36 weeks gestation of pregnancy; Z37.0 Single live birth; O32.8XX0 Maternal care for other malpresentation of fetus, not applicable or unspecified; O99.344 Other mental disorders complicating childbirth; F41.8 Other specified anxiety disorders; Z87.891 Personal history of nicotine dependence; Z30.2 Encounter for sterilization
CPT/HCPCS: 12345; 36415; 51702; 59025; 59409; 85025; 85027; 86850; 86900; 88302; 88307; 96374; 96376; 98960; J1885; J2250; J2274; J2405; J2590; J2765; J3490; J7120; J7121

== ENCOUNTER → 2023-03-12 16:42 | Outpatient (BNVA) | payer OTHER, MEDICAID, SELFPAY | PROVIDERS: PCP Nurse Practitioner Family; Visit Provider Registered Nurse Neonatal Intensive Care | DX: M25.571 Pain in right ankle and joints of right foot (principal) | CPT/HCPCS: 73610 ==

== ENCOUNTER 2023-07-28 17:22 | Emergency (ER) | payer OTHER, MEDICAID, SELFPAY ==
[2023-07-28] VITALS (27 sets, daily range): BP systolic 110–149; BP diastolic 64–110; PULSE 76–100; RESP 16–18; TEMP 36.7; O2SAT 94–99
[2023-07-28] MEDS: sodium chloride 0.9% 1,000 ML 999 ML IV (17:48)
[2023-07-28] MEDS: ondansetron 2 mg/ML SDV 2 mL 4 MG IVP ×2 (17:48→20:42)
--- NOTE | 2023-07-28 18:00 | CTR_ITS ---
PROCEDURE INFORMATION: Exam: CT Abdomen And Pelvis With Contrast Exam date and time: 07/28/2023 7:59 PM Age: 33 years old Clinical indication: Abdominal pain; Localized; Left lower quadrant (llq); Prior surgery; Surgery date: 6+ months; Surgery type: Tubal , csection, gallbladder; Additional info: Llq abd/pelvic pain spastic TECHNIQUE: Imaging protocol: Computed tomography of the abdomen and pelvis with contrast. Axial, coronal and sagittal reformatted images were created and reviewed. Radiation optimization: All CT scans at this facility use at least one of these dose optimization techniques: automated exposure control; mA and/or kV adjustment per patient size (includes targeted exams where dose is matched to clinical indication); or iterative reconstruction. Contrast material: OMNI 350; Contrast volume: 100 ml; Contrast route: INTRAVENOUS (IV); COMPARISON: CT abdomen pelvis w con* [id number] 08/29/2021 10:09 AM RADIATION DOSE METRICS: Total DLP (mGy-cm): 1248.34 FINDINGS: Liver: Mild hepatomegaly. Diffuse hepatic steatosis. Gallbladder and bile ducts: Status post cholecystectomy. No biliary ductal dilatation. Pancreas: Unremarkable. Spleen: Unremarkable. Adrenal glands: Normal. No mass. Kidneys and ureters: No mass. No radiodense calculi. No hydronephrosis. Stomach and bowel: No bowel wall thickening. No obstruction. No pneumatosis. Appendix: Normal. Intraperitoneal space: No free fluid. No organized fluid collection. No free air. Vasculature: Unremarkable. No aneurysm. Lymph nodes: No pathologically enlarged lymph nodes. Urinary bladder: Unremarkable as visualized. Reproductive: Probable involuting right ovarian corpus luteal cyst. Bones/joints: No acute osseous abnormality. Soft tissues: Unremarkable. CT/CT abdomen pelvis w con* [id number]: 1[address] No CT evidence of acute intra-abdominal or pelvic pathology. 2. Additional findings, as above.
--- NOTE | 2023-07-28 18:02 | W.ED.ABDPA2 ---
HPI - Abdominal Pain General: Chief Complaint: Abdominal Pain Stated Complaint: left side abd pain Time Seen by Provider: 07/28/23 17:35 History of Present Illness: Patient presents to the ER with complaints of worsening left lower quadrant/pelvic pain for the last 3 days. Patient has had this off and on for several months. However the last 2 to 3 days has been increasing in severity to the point that she cannot tolerate it. 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 Patient talked to Dr. Page who felt on her belly and said she felt like she was constipated. Patient drank 2 bottles of mag citrate had approximately 5 bowel movements and the pain did not subside. Patient has had a cholecystectomy, 2 C-sections and a tubal ligation. Patient has had some nausea and vomiting since she drank the mag citrate denies any urinary symptoms, fever or chills, sick contacts. 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 Is currently weaning herself off the medication and states that she feels much better and more herself. She follows up with Jacey Mcfadden her primary care provider. Does not have a therapist Surgical History Status post tubal ligation at time of delivery, current hosp Status post History of classical section History of laparoscopic [place] (~02/2020[place] [facility] [place]oscopy (~02/2020) History of esophagogastroduodenoscopy (EGD) (~02/2020) History of conization of cervix (03/23/19) for BRITTANY 2---> performed by Dr. Ron at [facility] [place]. Pathology showed BRITTANY-1 with negative margins and posteriorly. Post LEEP ECC was benign. Status post surgical removal of malignant neoplasm of skin (~2017) from head-wide local excision performed in 2018. H/O section (12/08/18) CLASSICAL DELIVERY performed at [facility]. Operative reports have been obtained and scanned into the chart on 02/06/2019---given small uterine size , classical hysterotomy made and the incision extended with bandage scissors. Double layer closure. H/O laparoscopy (04/01/16) 04/01/2016---diagnostic laparoscopy for chronic pain-per patient everything was normal-operative report was reviewed-normal tubes, ovaries and uterus. No endometriosis or any pathology identified. No specimen sent. Hx of tonsillectomy (~2007) History of hip surgery (~2012) Hip surgery for a torn tendon in [facility] Family History Grandmother Heart disease maternal Hypercholesteremia maternal Family history of thyroid problem maternal Diabetes maternal and paternal Hypertension maternal and paternal Grandfather Diabetes maternal Colon cancer maternal, age at diagnosis unknown Hypertension maternal and paternal Stroke maternal Mother Hypertension Father Hypertension Denies family history of Ovarian cancer Breast cancer Social History Smoking and tobacco/nicotine status: former use of tobacco/nicotine Alcohol intake: current Alcohol intake frequency: holidays/special occasions only Substance/Drug Use: never Lives independently: Yes Marital status: Single Current occupational status: employed Current gender identity: Female Physical Exam Const: COMMON NORMALS: no acute distress, average body habitus, patient oriented x3, no limitations, healthy appearing, alert and well nourished HENMT: COMMON NORMALS: normocephalic, atraumatic, hearing grossly normal bilaterally, external ears normal, Normal external nose present, moist oral mucous membranes and oropharynx normal HEAD & SCALP: normocephalic and atraumatic NOSE: Normal external nose present EXTERNAL EAR: Yes external ears normal Neck/C-Spine: COMMON NORMALS: no JVD Chest: COMMONS NORMALS: normal inspection of the chest and normal palpation of entire chest wall Resp: COMMON NORMALS: normal respiratory effort, No retractions, No use of accessory muscles and clear to auscultation bilaterally AUSCULTATION: clear to auscultation bilaterally Cardio: COMMON NORMALS: no JVD, regular rate, regular rhythm, S1 normal heart sound present, S2 normal heart sound present, No gallops present (Cardio), No clicks present (Cardio), No murmurs present (Cardio) and No rub (Cardio) RATE: regular rate RHYTHM: regular rhythm HEART SOUNDS: S1 normal heart sound present and S2 normal heart sound present GI: COMMON NORMALS: Normal to inspection, nondistended, normoactive bowel sounds present, Soft to palpation, No hepatosplenomegaly present and no masses; negative for non-tender (Point tenderness left lower quadrant/pelvic region. Reproduces the pain) PALPATION: Yes Soft to palpation and Yes No hepatosplenomegaly present Neuro: COMMON NORMALS: patient oriented x3 SENSORIUM/ORIENTATION: Yes alert Course Vital Signs: Vital signs: Vital Signs Temperature 98.0 F 07/28/23 17:29 Pulse Rate 78 07/28/23 20:47 Respiratory Rate 16 07/28/23 20:47 Blood Pressure 110/64 07/28/23 20:47 Pulse Oximetry 97 07/28/23 20:47 Oxygen Delivery Me thod Room Air 07/28/23 20:47 MDM - Abdominal Pain Medical Decision Making Patient present with left lower quadrant abdominal pain. Patient had lab work including a contrasted CT scan of the abdomen pelvis which did not show any acute cause of pain. Patient be referred to Dr. Page for further workup including possible colonoscopy. Patient was sent home with 2 [place] tablets to go home on it as well as a prescription. Differential Diagnosis Likely abdominal pain; Unlikely acute appendicitis, calculus of kidney, constipation, diverticulitis, endometriosis, gastroenteritis, pancreatitis or small bowel obstruction Medical Records I reviewed the patient's medical records. Lab Data I reviewed the patient's lab results. 07/28/23 17:53 07/28/23 17:53 Labs/Radiology: Radiology Impressions Abdomen/Pelvis CT 07/28/23 18:[address]: [address] evidence of acute intra-abdominal or pelvic pathology. 2. Additional findings, as above. Laboratory Results WBC 7.97 10^3/uL (3.29-11.43) 07/28/23 17:53 RBC 4.70 10^6/uL (3.85-5.65) 07/28/23 17:53 Hgb 13.90 g/dL (11.27-16.99) 07/28/23 17:53 Hct 41.7 % (36-47) 07/28/23 17:53 MCV 88.7 fl (85-98) 07/28/23 17:53 MCH 29.6 pg (27-33) 07/28/23 17:53 MCHC 33.3 g/dL (30-55) 07/28/23 17:53 RDW 12.4 % (12.1-15.1) 07/28/23 17:53 Plt Count 239 10^3/cmm (157-399) 07/28/23 17:53 MPV 11.1 fL (7.4-10.4) H 07/28/23 17:53 Neut % (Auto) 71.5 % 07/28/23 17:53 Lymph % (Auto) 20.7 % 07/28/23 17:53 [place] % (Auto) 5.0 % 07/28/23 17:53 Eos % (Auto) 2.1 % 07/28/23 17:53 Baso % (Auto) 0.4 % 07/28/23 17:53 Neut # (Auto) 5.70 10^3/uL (1.8-7.7) 07/28/23 17:53 Lymph # (Auto) 1.7 10^3/uL (0.8-4.8) 07/28/23 17:53 [place] # (Auto) 0.4 10^3/uL (0.2-0.9) 07/28/23 17:53 Eos # (Auto) 0.2 10^3/uL (0.0-0.8) 07/28/23 17:53 Baso # (Auto) 0.0 10^3/uL (0.0-0.1) 07/28/23 17:53 Nucleated RBC % (auto) 0 % 07/28/23 17:53 Nucleated RBCs # 0.0 /100WBC 07/28/23 17:53 Sodium 141 mmol/L (136-145) 07/28/23 17:53 Potassium 3.7 mmol/L (3.5-5.1) 07/28/23 17:53 Chloride 104 mmol/L (98-107) 07/28/23 17:53 Carbon Dioxide 28 mmol/L (22-29) 07/28/23 17:53 Anion Gap 12.7 (5-19) 07/28/23 17:53 BUN 11 mg/dL (6-20) 07/28/23 17:53 Creatinine 0.7 mg/dL (0.5-0.9) 07/28/23 17:53 GFR Calculation 97.0 mL/min (90-130) 07/28/23 17:53 Glucose 99 mg/dL (65-115) 07/28/23 17:53 Calculated Osmolality 291 mOsm/kg (285-295) 07/28/23 17:53 Calcium 8.7 mg/dL (8.5-10.5) 07/28/23 17:53 Total Bilirubin 0.4 mg/dL (0.15-1.2) 07/28/23 17:53 AST 21 U/L (0-32) 07/28/23 17:53 ALT 26 U/L (0-33) 07/28/23 17:53 Alkaline Phosphatase 100 U/L (35-105) 07/28/23 17:53 Total Protein 6.9 g/dL (6.6-8.7) 07/28/23 17:53 Albumin 4.1 g/dL (3.5-5.2) 07/28/23 17:53 Globulin 2.8 g/dL (1.3-4.6) 07/28/23 17:53 Lipase 45 U/L (13-60) 07/28/23 17:53 Urine Color Yellow (Yellow) 07/28/23 17:53 Urine Appearance Clear (CLEAR) 07/28/23 17:53 Urine pH 7 (5-7) 07/28/23 17:53 Ur Specific [place] 1.010 (1.005-1.030) 07/28/23 17:53 Urine Protein Neg (Negative) 07/28/23 17:53 Urine Glucose (UA) Norm (Normal) 07/28/23 17:53 Urine Ketones 1+ (Negative) H 07/28/23 17:53 Urine Blood Neg (Negative) 07/28/23 17:53 Urine Nitrate Negative (Negative) 07/28/23 17:53 Urine Bilirubin Neg (Negative) 07/28/23 17:53 Urine Urobilinogen Norm mg/dL (Negative) 07/28/23 17:53 Ur Leukocyte Esterase Negative (Negative) 07/28/23 17:53 All radiology interpretation(s) finalized by discharge Discharge Plan Discharge Patient Disposition: Home Clinical Impression: Abdominal pain, left lower quadrant Condition: Stable Prescriptions: New hydrocodone-acetaminophen 5-325 mg tablet 1 tab PO Q6H PRN (Reason: pain) Qty: 14 0RF No Action escitalopram oxalate 20 mg tablet 20 mg PO Discharge Orders: Discharge ED (Routine); Ordered 07/28/23 Ordered By: Kedar Whyte Referrals: Kobe Meredith MD [Primary Care Provider] - 1 week Patient Instructions: Abdominal Pain (ED), Opioid Safety, Pain Management Activity Restrictions/Additional Instructions: Your lab work including CT scan of your abdomen and pelvis was essentially normal. He will be referred to Dr. Page for further workup for your left lower quadrant abdominal pain please take all prescriptions as prescribed. Coding Level of Care Code ED Biomedical Equipment Technician for Chris Arechiga
[2023-07-28 18:17] LABS: Add Urine Microscopic? NO; Charge for UA Resulting for Rev
[2023-07-28 18:25] LABS: Basophils % 0.4 %; Eosinophils # 0.2 10^3/uL (0.0-0.8); Eosinophils % 2.1 %; Hematocrit 41.7 % (36-47); Lymphocytes # 1.7 10^3/uL (0.8-4.8); Lymphocytes % 20.7 %; Mean Corpuscular HGB Conc 33.3 g/dL (30-55); Mean Corpuscular Hemoglobin 29.6 pg (27-33); Mean Corpuscular Volume 88.7 fl (85-98); Mean Platelet Volume 11.1 fL (7.4-10.4); Monocytes # 0.4 10^3/uL (0.2-0.9); Neutrophils % 71.5 %; Nucleated Red Blood Cells % 0 %; Platelet Count 239 10^3/cmm (157-399); Red Cell Distribution Width 12.4 % (12.1-15.1); White Blood Count 7.97 10^3/uL (3.29-11.43)
[2023-07-28 18:29] LABS: Bilirubin Urine Neg (Negative); Blood Urine Neg (Negative); Glucose Urine UA Norm (Normal); Ketones Urine 1+ (Negative); Leukocyte Esterase Urine Negative (Negative); Nitrate Urine Negative (Negative); Protein Urine Neg (Negative); Urine Appearance Clear (CLEAR); Urine Color Yellow (Yellow); Urobilinogen Urine Norm (Negative); pH Urine 7 (5-7)
[2023-07-28 18:40] LABS: Alanine Aminotransferase 26 U/L (0-33); Albumin Level 4.1 g/dL (3.5-5.2); Alkaline Phosphatase 100 U/L (35-105); Anion Gap 12.7 (5-19); Aspartate Amino Transferase 21 U/L (0-32); Blood Urea Nitrogen 11 mg/dL (6-20); Calcium 8.7 mg/dL (8.5-10.5); Carbon Dioxide 28 mmol/L (22-29); Chloride 104 mmol/L (98-107); Globulin 2.8 g/dL (1.3-4.6); Glucose 99 mg/dL (65-115); Lipase 45 U/L (13-60); Osmolality Calculated 291 mOsm/kg (285-295); Potassium 3.7 mmol/L (3.5-5.1); Sodium 141 mmol/L (136-145); Total Bilirubin 0.4 mg/dL (0.15-1.2); Total Protein 6.9 g/dL (6.6-8.7)
[2023-07-28] MEDS: ketorolac 30 mg/mL INJ IVP (19:00)
[2023-07-28] MEDS: iohexol 350 mg/mL 500 mL Btl (per mL) IV (20:06)
[2023-07-28] MEDS: morphine 4 mg/mL SDV 1 mL IVP (20:41)
[2023-07-28] MEDS: HYDROcodone-acetaminophen 5-325 mg Tablet 2 TAB PO (21:21)
== END 2023-07-28 21:30 | disposition home or self-care (01) ==
PROVIDERS: Emergency Provider Emergency Medicine; PCP Family Medicine
DX: R10.32 Left lower quadrant pain (principal); Z87.891 Personal history of nicotine dependence
CPT/HCPCS: 74177; 80053; 81003; 83690; 85025; 96361; 96374; 96375; 96376; 99285; J1885; J2270; J2405; J7030; Q9967

== ENCOUNTER → 2023-12-28 09:47 | Outpatient (BNVA) | payer OTHER, SELFPAY | PROVIDERS: PCP Family Medicine | DX: J06.9 Acute upper respiratory infection, unspecified (principal); U07.1 COVID-19 | CPT/HCPCS: 87426 ==

== ENCOUNTER 2024-02-04 13:49 | Emergency (ER) | payer OTHER, SELFPAY ==
[2024-02-04 13:52] VITALS: BP 139/72; PULSE 103; RESP 18; TEMP 36.7; O2SAT 97
--- NOTE | 2024-02-04 14:01 | XR_ITS ---
WS: [id number] Left ankle, 3 views, 02/04/2024 Clinical Data: ankle injury Comparison: Left ankle, 04/28/2020 Findings: No fractures or dislocations are seen. The ankle mortise is normal. The talus and calcaneus are unrem arkable. There is soft tissue swelling over the lateral malleolus. XR/XR ankle LT min 3V* [id number] Impression: 1. Negative for fracture or dislocation of the left ankle. 2. Soft tissue swelling over the lateral malleolus.
--- NOTE | 2024-02-04 14:20 | W.ED.EXTPRO ---
HPI - Extremity Problem General: Chief complaint: Extremity Injury, Lower Stated complaint: ankle injury Time Seen by Provider: 02/04/24 14:01 History of Present Illness: 33-year-old female who presents to the emergency room after having a fall and hurting her left ankle. She has a great deal of swelling on the lateral malleoli are area. She is neurovascularly intact. She is not able to bear weight. No obvious deformity. But it is quite swollen. No other injuries. Related Data Home Medications Medication Instructions Recorded Confirmed escitalopram oxalate 20 mg tablet 20 mg PO 03/12/23 07/29/23 bupropion HCl 150 mg tablet,12 hr 150 mg PO DAILY 12/28/23 12/28/23 sustained-release (Wellbutrin SR) Previous Rx's Medication Instructions Recorded benzonatate 100 mg capsule 100 mg PO TID PRN cough 7 days #20 12/28/23 caps diclofenac sodium 50 mg 50 mg PO BID PRN pain #14 tabs 02/04/24 tablet,delayed release hydrocodone 5 mg-acetaminophen 325 1 tab PO Q6H PRN pain #20 tabs 02/04/24 mg tablet ondansetron 8 mg disintegrating 8 mg PO Q6H #14 tabs 02/04/24 tablet polyethylene glycol 3350 17 17 g PO DAILY #510 grams 02/04/24 gram/dose oral powder (Miralax) Allergies Allergy/AdvReac Type Severity Reaction Status Date / Time tramadol AdvReac Respiratory Verified 02/04/24 13:55 distress-can take ibuprofen Review of Systems Narrative: Constitutional symptoms: Negative except as documented in HPI. Skin symptoms: Negative except as documented in HPI. Eye symptoms: Negative except as documented in HPI. ENMT symptoms: Negative except as documented in HPI. Respiratory symptoms: Negative except as documented in HPI. Cardiovascular symptoms: Negative except as documented in HPI. Gastrointestinal symptoms: Negative except as documented in HPI. Genitourinary symptoms: Negative except as documented in HPI. Musculoskeletal symptoms: Negative except as documented in HPI. Neurologic symptoms: Negative except as documented in HPI. Psychiatric symptoms: Negative except as documented in HPI. Endocrine symptoms: Negative except as documented in HPI. [facility] ED PFSH: Medical History No pertinent past medical history Denies hypertension, asthma, seizures, diabetes, DVT/PE PCP: [place] Anxiety and depression 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 Is currently weaning herself off the medication and states that she feels much better and more herself. She follows up with Jacey Mcfadden her primary care provider. Does not have a therapist Surgical History Status post tubal ligation at time of delivery, current hosp Status post History of classical section History of laparoscopic cholecystectomy (~02/2020) dr. ramírez- [facility] [place] History of colonoscopy (~02/2020) History of esophagogastroduodenoscopy (EGD) (~02/2020) History of conization of cervix (03/23/19) for BRITTANY 2---> [place]. Ron [place] [facility] [place] Pathology showed BRITTANY-1 with negative margins and posteriorly. Post LEEP ECC was benign. Status post surgical removal of malignant neoplasm of skin (~2017) from head-wide local excision performed in 2018. H/O section (12/08/18) CLASSICAL DELIVERY performed at [facility]. Operative reports have been obtained and scanned into the chart on 02/06/2019---given small uterine size , classical hysterotomy made and the incision extended with bandage scissors. Double layer closure. H/O laparoscopy (04/01/16) 04/01/2016---diagnostic laparoscopy for chronic pain-per patient everything was normal-operative report was reviewed-normal tubes, ovaries and uterus. No endometriosis or any pathology identified. No specimen sent. Hx of tonsillectomy (~2007) History of hip surgery (~2012) Hip surgery for a torn tendon in [facility] Family History Grandmother Heart disease maternal Hypercholesteremia maternal Family history of thyroid problem maternal Diabetes maternal and paternal Hypertension maternal and paternal Grandfather Diabetes maternal Colon cancer maternal, age at diagnosis unknown Hypertension maternal and paternal Stroke maternal Mother Hypertension Father Hypertension Denies family history of Ovarian cancer Breast cancer Social History Smoking and tobacco/nicotine status: unknown if used tobacco/nicotine Alcohol intake: current Alcohol intake frequency: holidays/special occasions only Substance/Drug Use: never Lives independently: Yes Marital status: Single Current occupational status: employed Current gender identity: Female Physical Exam Narrative: EXAM NARRATIVE: General: Alert, patient is in a great deal of pain. Skin: warm and dry Head: Normocephalic Neck: Trachea midline Eye: Extraocular movements are intact. Ears, nose, mouth and throat: Oral mucosa moist Respiratory: Respirations are non-labored Musculoskeletal: Range of motion limited by pain. Swelling of the lateral malleolus. Neurovascularly intact. Neurological: Alert and oriented, No focal neurological deficit observed. Psychiatric: Cooperative, appropriate mood & affect. Course Vital Signs: Vital signs: Vital Signs Temperature 98.0 F 02/04/24 13:52 Pulse Rate 73 02/04/24 16:23 Respiratory Rate 18 02/04/24 13:52 Blood Pressure 139/75 02/04/24 16:23 Pulse Oximetry 97 02/04/24 16:23 Oxygen Delivery Me thod Room Air 02/04/24 13:52 MDM - Extremity (Nontraumatic) Medical Decision Making Medical decision making: Differential diagnosis including but not limited to and based on the above HPI, review of systems and physical exam: Traumatic ankle injury. Concern for fracture, dislocation, strain. Orders placed to evaluate differential diagnosis based on the above differential, HPI and physical exam X-ray of the left ankle: No obvious fractures or dislocations. There is a great deal of soft tissue swelling. This was reviewed and interpreted by myself the emergency room physician. I also reviewed the radiology report. I reviewed the patient's medical record. Reexamination: Patient's pain seems to be more controlled now after medications. Swelling remains stable. No increased work of breathing. Splint placed by nursing. Neurovascularly intact. Consultation: I spoke with Dr. Mitchell with podiatry. He is unable to look at the films today but agrees with splinting crutches and following in clinic. Assessment and plan: Ankle sprain -Splint, crutches, pain medications. She received Toradol, [place] and Zofran here in the emergency room. - Discharged home - Discussed plan with patient. Answered any questions. - Evaluation and treatment of this problem were appropriate in the emergency setting. Lab Data Radiology Impressions Ankle X-Ray 02/04/24 14:01 Impression: 1. Negative for fracture or dislocation of the left ankle. 2. Soft tissue swelling over the lateral malleolus. All radiology interpretation(s) finalized by discharge Discharge Plan Discharge Patient Disposition: Home Clinical Impression: Ankle sprain and strain Condition: Stable Prescriptions: New hydrocodone-acetaminophen 5-325 mg tablet 1 tab PO Q6H PRN (Reason: pain) Qty: 20 0RF diclofenac sodium 50 mg tablet,delayed release (DR/EC) 50 mg PO BID PRN (Reason: pain) Qty: 14 0RF Miralax 17 gram/dose powder 17 g PO DAILY Qty: 510 0RF Rx Instructions: Take 1 scoop daily while taking pain medications. ondansetron 8 mg tablet,disintegrating 8 mg PO Q6H Qty: 14 0RF Rx Instructions: Take 1/2-1 tab every 6 hours as needed for nausea and vomiting No Action escitalopram oxalate 20 mg tablet 20 mg PO bupropion HCl [Wellbutrin SR] 150 mg tablet sustained-release 12 hr 150 mg PO DAILY benzonatate 100 mg capsule 100 mg PO TID PRN (Reason: cough) 7 Days Qty: 20 0RF Discharge Orders: Discharge ED (Routine); Ordered 02/04/24 Ordered By: Ghada Mcleod Referrals: Ghanhsyam Mitchell DPM [Physician] - 4-7 days (Please call for follow-up Wednesday morning.) Kobe Meredith MD [Primary Care Provider] - Discharge Diet: Usual diet Discharge Activity: Limit activity as instructed Patient Instructions: Crutch Instructions (ED), P.R.I.C.E. Treatment (ED) Activity Restrictions/Additional Instructions: Thank you for choosing [facility] for your healthcare needs today. Please realize this is an emergency room and that we are providing you with a medical screening exam and this may not be complete and all inclusive of all the testing and or work up that you may need to determine your ailment or severity of your illness. You have been screened and evaluated and felt safe for discharge. Health conditions do change or evolve sometimes and as such it is important that you follow up with your Primary Doctor to be re checked, 3-5 days is a general good time frame for follow up. You are always welcome to return to the ED for re assessment if your symptoms are worsening or you have new concerns Coding Level of Care Code ED Field Machinist for Chris Arechiga
[2024-02-04] MEDS: HYDROcodone-acetaminophen 10-325 mg Tablet 1 TAB PO (15:08)
[2024-02-04] MEDS: ondansetron 4 MG Tablet PO (15:08)
[2024-02-04] MEDS: ketorolac 60 mg/2 mL INJ IM (15:10)
[2024-02-04 16:23] VITALS: BP 139/75; PULSE 73; O2SAT 97
== END 2024-02-04 16:23 | disposition home or self-care (01) ==
PROVIDERS: Emergency Provider Emergency Medicine; PCP Family Medicine
DX: S93.402A Sprain of unspecified ligament of left ankle, initial encounter (principal); S96.912A Strain of unspecified muscle and tendon at ankle and foot level, left foot, initial encounter; W19.XXXA Unspecified fall, initial encounter
CPT/HCPCS: 73610; 96372; 99284; J1885; Q0162

== ENCOUNTER 2024-02-10 12:06 | Outpatient (CLI) | payer OTHER, SELFPAY ==
--- NOTE | 2024-02-10 12:15 | MR_ITS ---
WS: [id number] MRI LEFT ANKLE WITHOUT CONTRAST. COMPARISON: 05/21/2020, radiograph 02/04/2024 Multiplanar, multisequence imaging is performed without contrast. No acute fracture. There is a tiny amount of increased T2 signal in the medial talus which was presen t on the prior study but improved. No acute fracture is identified. No osteochondral lesion along the talar dome. There are several loose bodies adjacent to the distal fibular tip. These loose bodies we re not present on the prior study. At least 3 loose bodies are identified and these are surrounded by fluid. The largest loose body is 5 mm. There is a complete tear of the anterior talofibular ligament at the talar insertion site. There is a large fluid gap. A tear was also noted in the similar location on the prior study in 2019. There is more fluid and edema noted now. The posterior talofibular ligament is normal. Anterior and posterior tibiofibular ligaments are intact. Normal striations in the deltoid ligament. Normal sinus Tarsi. Nor mal Achilles tendon. Peroneal tendons are intact with no tear. There is a small amount of increased f luid within the tendon sheath at the level of the malleolus. Flexor hallux is longus, flexor digitoru m longus and the posterior tibialis tendon are normal. The anterior tibialis tendon and the extensor tendons are normal. Normal spring ligament. MR/MR ankle LT wo con* [id number] IMPRESSION: 1. No acute fracture. 2. Multiple osseous well-circumscribed bone fragments (estimated at 3) distal to the fibula. New since 2019. These may be related to the recent injury or fro m a chronic injury. No fibular edema identified. 3. Complete tear of the anterior talofibular ligament at the talar insertion s ite. Tear was also noted on the prior study from 05/21/2020. There is a large am ount of edema present at the ligament tear site suggesting this is a new tear. 4. Peroneal tendons are normal. Small amount of increased fluid within the per mazariegos tendon sheath over the lateral malleolus.
== END 2024-02-10 12:07 | disposition home or self-care (01) ==
LOC: RAD 12:10
PROVIDERS: PCP Family Medicine; Visit Provider Podiatrist Foot & Ankle Surgery
DX: S82.832A Other fracture of upper and lower end of left fibula, initial encounter for closed fracture (principal); S93.492A Sprain of other ligament of left ankle, initial encounter; R60.0 Localized edema; X58.XXXA Exposure to other specified factors, initial encounter
CPT/HCPCS: 73721

== ENCOUNTER 2024-02-17 11:05 | Day surgery (SDC) | payer OTHER, SELFPAY ==
[2024-02-17] VITALS (29 sets, daily range): BP systolic 90–133; BP diastolic 51–89; PULSE 62–124; RESP 13–23; TEMP 36.3–36.9; O2SAT 96–100; BMI 36.3
[2024-02-17] MEDS: sodium chloride 0.9% 1,000 ML 30 ML IV (11:51)
[2024-02-17] MEDS: CELEcoxib 200 mg Capsule 400 MG PO (11:52)
[2024-02-17] MEDS: gabapentin 300 mg Capsule PO (11:52)
[2024-02-17] MEDS: scopolamine 1.5 Patch 1 PATCH TRANSDERMA (11:58)
--- NOTE | 2024-02-17 12:15 | ANES.PROC ---
Anesthesia Procedures Procedure/Date: 02/17/24 Nerve Block ^: Nerve Block 1: Main Anesthesia: other (100mcg fentanyl and 2mg versed) Time Out Performed: Yes Consent: requested by attending/covering physician and from patient Nerve block location: popliteal Anesthesia monitors applied: pulse oximetry, EKG, BP cuff and oxygen Nerve block position: semi sitting Anesthetic Used: ropivicaine 0.5% Amount of anesthesia used (mL): 25 Ultrasound used to: recognize landmarks Nerve Stimulator Used?: Yes Interscalene/Femoral BLK: 4 stimuplex 21 g needle used for position and inplane approach Injection: neg aspiration of heme Patient Tolerated Procedure: well Complications: none Additional Comments: decadron 4mg added to block Nerve Block 2: Main Anesthesia: other Time Out Performed: Yes Consent: requested by attending/covering physician Nerve block location: adductor canal Anesthesia monitors applied: pulse oximetry, EKG, BP cuff and oxygen Nerve block position: semi sitting Anesthetic Used: ropivicaine 0.5% Amount of anesthesia used (mL): 15 Ultrasound used to: recognize landmarks Nerve Stimulator Used?: Yes Interscalene/Femoral BLK: 4 stimuplex 21 g needle used for position and inplane approach Injection: neg aspiration of heme Patient Tolerated Procedure: well Complications: none
--- NOTE | 2024-02-17 12:18 | ANES.PREANE2 ---
Pre-Anesthetic Assessment Height/Weight: Height 5 ft 9.5 in Weight 250 lb Temp Pulse Resp BP Pulse Ox O2 Del Method 97.3 F L 83 18 121/86 97 Room Air 02/17/24 11:15 02/17/24 11:15 02/17/24 11:15 02/17/24 11:58 02/17/24 11:15 02/17/24 11:54 Preop Diagnosis: Left ankle instability with ATFL rupture Operation Date: 02/17/24 12:45 Proposed Procedures p Brostrom Procedure Modified Brostrom(Left) - Ghanshyam Mitchell DPM Familial anesthetic complications: None Last intake: Intake Last Liquid Date 02/17/24 Last Liquid Time 08:30 Last Solid Date 02/16/24 Last Solid Time 20:00 Social No alcohol and No tobacco Exam alert, oriented x 3, clear to auscultation bilaterally and regular rate & rhythm Airway Submandibular: within normal limits Cervical ROM: within normal limits Mallampati: Class II Dentition: full Anesthetic Plan ASA status: 2 Anesthesia: General Other: No prior issues with anesthesia METs greater than 4 Denies any cardiac or pulmonary issues NPO since midnight Plan for general anesthetic with LMA. Popliteal and adductor canal block preop Medications/Allergies Home Medications Medication Instructions Recorded Confirmed Last Taken Type escitalopram oxalate 20 mg tablet 20 mg PO DAILY 03/12/23 02/15/24 02/16/24 History bupropion HCl 150 mg tablet,12 hr 150 mg PO DAILY 12/28/23 02/15/24 02/16/24 History sustained-release (Wellbutrin SR) hydrocodone 10 mg-acetaminophen 1 tab PO Q6H PRN pain 7 days #28 02/17/24 Unknown Rx 325 mg tablet tabs Allergies Allergy/AdvReac Type Severity Reaction Status Date / Time tramadol AdvReac Respiratory Verified 02/07/24 07:11 distress-can take ibuprofen Current Medications Generic Name Dose Route Start Last Admin Trade Name Freq PRN Reason Stop Dose Admin Sodium Chloride 1,000 mls @ 30 mls/hr 02/17/24 11:15 02/17/24 11:51 Sodium Chloride 0.9% IV 02/18/24 11:14 30 mls/hr .Q24H KHANG Administration PFSH Anesthesia Medical History No pertinent past medical history Denies hypertension, asthma, seizures, diabetes, DVT/PE PCP: [place] Anxiety and depression 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 Is currently weaning herself off the medication and states that she feels much better and more herself. She follows up with Jacey Mcfadden her primary care provider. Does not have a therapist Surgical History Status post tubal ligation at time of delivery, current hosp Status post History of classical section History of laparoscopic cholecystectomy (~02/2020) dr. ramírez- [facility] [place] History of colonoscopy (~02/2020) History of esophagogastroduodenoscopy (EGD) (~02/2020) History of conization of cervix (03/23/19) for BRITTANY 2---> performed by Dr. Ron at [facility] [place]. Pathology showed BRITTANY-1 with negative margins and posteriorly. Post LEEP ECC was benign. Status post surgical removal of malignant neoplasm of skin (~2017) from head-wide local excision performed in 2018. H/O section (12/08/18) CLASSICAL DELIVERY performed at [facility]. Operative reports have been obtained and scanned into the chart on 02/06/2019---given small uterine size , classical hysterotomy made and the incision extended with bandage scissors. Double layer closure. H/O laparoscopy (04/01/16) 04/01/2016---diagnostic laparoscopy for chronic pain-per patient everything was normal-operative report was reviewed-normal tubes, ovaries and uterus. No endometriosis or any pathology identified. No specimen sent. Hx of tonsillectomy (~2007) History of hip surgery (~2012) Hip surgery for a torn tendon in [facility] Family History Grandmother Heart disease maternal Hypercholesteremia maternal Family history of thyroid problem maternal Diabetes maternal and paternal Hypertension maternal and paternal Grandfather Diabetes maternal Colon cancer maternal, age at diagnosis unknown Hypertension maternal and paternal Stroke maternal Mother Hypertension Father Hypertension Denies family history of Ovarian cancer Breast cancer Social History (Updated 02/07/24 @ 07:12 by Simba Yip LPN) Smoking and tobacco/nicotine status: never used tobacco/nicotine Alcohol intake: current Alcohol intake frequency: holidays/special occasions only Substance/Drug Use: never Lives independently: Yes Marital status: Single Current occupational status: employed Current gender identity: Female Female Reproductive History Date of last menstrual period: 02/13/24 Data Anesthesia Cardiac Studies: No Data to Display
--- NOTE | 2024-02-17 12:41 | W.PM.OPSUD ---
Surgery/Procedure H&P Update DATE OF PROCEDURE: February 17, 2024 DATE H&P PERFORMED: 02/07/24 H&P UPDATE INFORMATION: I have reviewed H&P completed within last 30 days, I have examined patient prior to procedure, No changes to prior documentation and H&P is in [facility] [place] on date indicated PREOP DIAGNOSIS: Left ankle instability with ATFL rupture PLANNED PROCEDURE: Operation Date: 02/17/24 12:45 Proposed Procedures p Brostrom Procedure Modified Brostrom(Left) - Ghanshyam Mitchell DPM
[2024-02-17] MEDS: ceFAZolin 2,000 mg SDV 2000 MG IVP (12:42)
[2024-02-17] MEDS: BUPivacaine liposome 13.3 mg/mL SDV 20 mL 266 MG INFILTRATI (13:14)
[2024-02-17] MEDS: dexamethasone 4 mg/mL INJ INJECTION (13:35)
--- NOTE | 2024-02-17 13:56 | W.PM.BPON ---
Date of Procedure: 08/27/23 Surgeon: Ghanshyam Mitchell DPM Aligner Barrel And Receiver(s): Enrique Freeman Procedure(s) performed: Modified Brostr?m left ankle. Cortisone injection left peroneal tendons. Findings of the procedure(s): Complete rupture of left ATFL Estimated blood loss: 2 mL Specimen(s) removed: No specimens Post-operative diagnosis: Left anterior talofibular ligament rupture, left lateral ankle instability, left peroneal tendinitis. No complications with anesthesia or surgery. Tourniquet time 48 minutes
--- NOTE | 2024-02-17 13:57 | PM.OP ---
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 CPT code 99412 Implants: Brostr?m 2.0 by Arthrex, 3-0 Vicryl, 4-0 Vicryl, 4-0 nylon Specimens removed/disposition: None Pathology: None Surgeon: Ghanshyam Mitchell DPM Family Resource Management Specialist: Enrique Freeman Estimated blood loss: 2 48 IV fluids: See intraoperative documentation Urine output: None Brief History: Ms. Carlton is an established 33 year old female patient here for evaluation of her new left ankle injury. Patient reports a injury on 02/04/24 after stepping in a hole. She was evaluated at [facility] ED where x-rays were obtained. She was placed into a posterior splint then. She has transitioned to a CAM walker she had at home. She has remained non weight bearing in the boot. She has a lengthy history of ankle injuries secondary to chronic instability to the ankle. Ordered ankle MRI which was performed 02/10/2024 significant for complete tear of the anterior talofibular ligament. Has failed to recover from previous injuries with reoccurring ankle injuries in spite of physical therapy and bracing and anti-inflammatories like to proceed with surgical intervention and repair of the ligament with augmentation of internal brace I reviewed at length with the patient, the risks, potential complications, benefits, alternatives, expectations, and typical outcomes associated with the surgery. The risks and potential complications were explained in detail, including but not limited to infection, wound dehiscence or soft tissue complications, bleeding and hematoma, chronic edema, neuritis or nerve damage producing numbness or chronic pain, CRPS, failure to relieve pain or worsening pain, thick / painful / unsightly scar, limited motion / stiffness, malposition, delayed union, malunion, or nonunion, fracture, reaction to implants, anesthetic complications, venous thromboembolism, and deformity recurrence. I discussed the notion of no regrets with the patient as it pertains to complications and outcomes. The patient seemed to understand the nature of the proposed care and required convalescence. They asked appropriate questions, answered to their satisfaction. They are aware no guarantees can be made as to a satisfactory outcome and they understand there may be other possible unforeseen complications or outcomes not listed here that will be treated accordingly if they arise. There were no written or implied guarantees given to the patient. They gave informed consent to proceed. Procedure: Under mild sedation patient was brought to the operating room and placed onto the operating table in supine position. A timeout was performed. Anesthesia was administered by the anesthesia service. Of note left popliteal block performed preoperatively per anesthesia service was greatly appreciated. Well-padded pneumatic tourniquet applied to the left high calf. Left lower extremity was scrubbed, prepped and draped utilizing normal aseptic technique. Left foot and ankle were exanguinated with a Esmarch bandage and tourniquet inflated to 250 mmHg. Attention was directed to the left lateral ankle where bony landmarks were palpated including lateral malleolus. A curvilinear incision was performed directly over the anterior lateral malleolus through skin with a #15 blade with dissection then carried down through subcutaneous tissue to the layer retinaculum utilizing sharp and blunt technique. All bleeders were ligated and cauterized as necessary. Extensor retinaculum was incised and reflected followed by direct visitation of the completely ruptured anterior fibular ligament. Avulsion fragments were sharply excised and passed from the operative field at the distal fibula total of 2 fragments were encountered and these were excised and passed to the back table. The incision was irrigated with saline solution. Arthrex internal brace 2.0 was then utilized for augmentation of the ATFL in standard fashion with drill hole at the talar body not violating the ankle or subtalar joint this was confirmed with intraoperative C arm and guidewire, fiber tack x 2 and swivel lock at fibula. The anterior talofibular ligament repair directly with fiber tack and augmented with internal brace provided by Arthrex with ankle joint being held in neutral position and care taken to not over tighten the internal brace by placing a hemostat underneath. Once this knotless construction was performed a robust lateral ankle ligament complex was appreciated intraoperatively, was able to visualize calcaneofibular ligament and noted to be intact, negative anterior drawer and negative talar tilt appreciated intraoperatively. The incision was irrigated with saline solution. The retinaculum was then directly repaired with 3-0 Vicryl, subcutaneous tissue with 4-0 Vicryl and skin with 4-0 nylon. 20 cc of Exparel was then infiltrated subcutaneously in a grid like fashion to the lateral ankle and distal leg. Incision was dressed with jumpstart, sterile 4 x 4's, Kerlix and Miguel wrap followed by application of a cam boot to the left lower extremity. Tourniquet was then deflated and a prompt hyperemic response is noted to the distal digits of the left foot. Patient tolerated the procedure and anesthesia well. Was transferred to the PACU with vital signs stable and vascular status intact.
--- NOTE | 2024-02-17 14:19 | ECG_ITS ---
[facility] Test Date: 2024-02-17 Pat Name: Maude Carlton Department: Room: Gender: Female Branch Operations Manager: : 1990 Requested By: Tomás Jane Order Number: [id number] Luis Felipe MD: Rohit Rodriguez M.D. Measurements Intervals [place] Rate: 71 P: 67 TX: 194 QRS: 43 QRSD: 96 T: 25 QT: 405 QTc: 440 Interpretive Statements SINUS RHYTHM No previous ECG available for comparison Electronically Signed On 02-17-2024 14:41:41 CDT by Rohit Rodriguez M.D. [email or web address]
--- NOTE | 2024-02-17 15:30 | PM.PN ---
Subjective Subjective: Immediately as postop patient was experiencing anxiety as well as stating that she felt short of breath with chest heaviness. Twelve-lead EKG showing sinus rhythm. Vital stable. Upon further investigation it was noticed that patient received intraoperative Exparel. Preoperative peripheral nerve block was performed prior to surgery with ropivacaine. Due to the concern of mixing these medications I personally reached out to pharmacy as well as Exparel rep. Spoke to multiple colleagues. After further investigation given that the injections were at different sites, could not discern for local toxicity was low. Patient will be continued to be monitored for several hours with plans of discharge if she continues to be asymptomatic. Dr. Mitchell is aware of plan. Vitals/I&O/Wt Last Vital Signs Temp 97.6 F 02/17/24 15:27 Pulse 86 02/17/24 16:22 Resp 16 02/17/24 16:22 BP 133/60 02/17/24 16:08 Pulse Ox 98 02/17/24 16:22 O2 Del Method Room Air 02/17/24 16:22 O2 Flow Rate 4 02/17/24 16:20 02/17/24 02/17/24 02/17/24 06:59 14:59 22:59 Intake Total 0 / 0 200 / 200 Output Total 2 / 2 Balance -2 / -2 200 / 198 Weight last 48 hrs Weight 250 lb Physical Exam Const: COMMON NORMALS: alert Resp: COMMON NORMALS: clear to auscultation bilaterally AUSCULTATION: clear to auscultation bilaterally Neuro: SENSORIUM/ORIENTATION: Yes alert Attestations Medical Necessity Statement*: N/A Coding Level of Care Code Acute Code for Chg Fwd
[2024-02-17] MEDS: HYDROcodone-acetaminophen 10-325 mg Tablet 1 TAB PO (15:44)
[2024-02-17] MEDS: midazolam 1 mg/mL INJ 2 mL 2 MG IVP (16:21)
--- NOTE | 2024-02-17 16:31 | SUR.PHASEII ---
Patient started having sudden anxiety, feeling trapped , heavy breathing, feeling like heart racing. Patient on heart monitor and pulse ox, and NC with O2 at 4. Anesthesia called to room to assess. Order for versed received and admin. After about 4 min patient breathing slower and states she feels less anxious. Patient currently resting in bed alert and oriented with no pain to operative extremity and no other complaints and family at bedside. Will continue to monitor.
--- NOTE | 2024-02-17 17:30 | ANE.PACU2 ---
Inpatient post-anesthesia follow up: Airway intact: Yes Vital signs: Temperature 97.6 F Pulse Rate 87 Respiratory Rate 16 Blood Pressure 124/89 Pulse Oximetry 98 Oxygen Delivery Me thod Room Air Oxygen Flow Rate 4 Fraction of Inspir ed Oxygen Hydration adequate: Yes Nausea and vomiting: No Pain level: 1 Mental status: Baseline Additional Comments: Vital stable. Patient currently only complaining of mild leg pain.
== END 2024-02-17 17:30 | disposition home or self-care (01) ==
PROVIDERS: PCP Family Medicine; Visit Provider Podiatrist Foot & Ankle Surgery
PROC: (CPT 27698; principal; 2024-02-17 12:35)
DX: S93.492A Sprain of other ligament of left ankle, initial encounter (principal); M25.372 Other instability, left ankle; M25.572 Pain in left ankle and joints of left foot
CPT/HCPCS: 27698; 93005; C1713; C9290; J0131; J0690; J1100; J1885; J2250; J2405; J2704; J7030

== ENCOUNTER 2024-03-08 12:06 | Outpatient (RCR) | payer OTHER, SELFPAY | END 2024-03-13 23:59 | disposition home or self-care (01) | LOC: SPT 12:06 | PROVIDERS: PCP Family Medicine; Visit Provider Podiatrist Foot & Ankle Surgery | DX: Z98.890 Other specified postprocedural states (principal) | CPT/HCPCS: 97161 ==

== ENCOUNTER 2024-03-14 06:00 | Outpatient (RCR) | payer OTHER, SELFPAY | END 2024-04-13 23:59 | disposition home or self-care (01) | LOC: SPT 06:00 | PROVIDERS: PCP Family Medicine; Visit Provider Podiatrist Foot & Ankle Surgery | DX: Z98.890 Other specified postprocedural states (principal) | CPT/HCPCS: 97032; 97110; 97112; 97140; L1902 ==

== ENCOUNTER 2024-04-14 06:00 | Outpatient (RCR) | payer OTHER, SELFPAY | END 2024-05-05 23:59 | disposition home or self-care (01) | LOC: SPT 06:00 | PROVIDERS: PCP Family Medicine; Visit Provider Podiatrist Foot & Ankle Surgery | DX: Z98.890 Other specified postprocedural states (principal) | CPT/HCPCS: 97110; 97112; 97164 ==

== ENCOUNTER 2024-06-13 11:54 | Outpatient (CLI) | payer OTHER, SELFPAY | END 2024-06-13 11:55 | disposition home or self-care (01) | LOC: SPT 11:54 | PROVIDERS: PCP Family Medicine; Visit Provider Podiatrist Foot & Ankle Surgery | DX: Z47.89 Encounter for other orthopedic aftercare (principal); M25.373 Other instability, unspecified ankle; Z98.890 Other specified postprocedural states | CPT/HCPCS: L3030 ==

== ENCOUNTER 2024-06-27 17:26 | Emergency (ER) | payer OTHER, SELFPAY ==
--- NOTE | 2024-06-27 17:28 | XRR_ITS ---
PROCEDURE INFORMATION: Exam: XR Chest Exam date and time: 06/27/2024 5:43 PM Age: 34 years old Clinical indication: Shortness of breath; Additional info: SOB TECHNIQUE: Imaging protocol: Radiologic exam of the chest. Views: 1 view. COMPARISON: CR XR chest 1V portable [id number] 01/31/2020 3:09 AM FINDINGS: Lungs: Unremarkable. No consolidation. Pleural spaces: Unremarkable. No pleural effusion. No pneumothorax. Heart/Mediastinum: Unremarkable. No cardiomegaly. Bones/joints: Unremarkable. XR/XR chest 1V portable [id number] IMPRESSION: No acute findings.
[2024-06-27 17:36] VITALS: BP 171/129; PULSE 126; RESP 26; TEMP 36.6; O2SAT 100; BMI 36.9
--- NOTE | 2024-06-27 17:46 | CTR_ITS ---
PROCEDURE INFORMATION: Exam: CT Abdomen And Pelvis With Contrast Exam date and time: 06/27/2024 6:55 PM Age: 34 years old Clinical indication: Abdominal pain; Periumbilical; Prior surgery; Surgery date: 6+ months; Surgery type: Gb, csection; Additional info: Abd pain TECHNIQUE: Imaging protocol: Computed tomography of the abdomen and pelvis with contrast. Radiation optimization: All CT scans at this facility use at least one of these dose optimization techniques: automated exposure control; mA and/or kV adjustment per patient size (includes targeted exams where dose is matched to clinical indication); or iterative reconstruction. Contrast material: OMNIPAQUE 350; Contrast volume: 100 ml; Contrast route: INTRAVENOUS (IV); COMPARISON: CT abdomen pelvis w con* [id number] 07/28/2023 7:59 PM RADIATION DOSE METRICS: Total DLP (mGy-cm): 1223.23 FINDINGS: Liver: Normal. No mass. Gallbladder and biliary ducts: The gallbladder is absent. Pancreas: Normal. No ductal dilation. Spleen: Normal. No splenomegaly. Adrenal glands: Normal. No mass. Kidneys and ureters: Normal. No hydronephrosis. Stomach and bowel: Unremarkable. No obstruction. No mucosal thickening. Appendix: No evidence of appendicitis. Intraperitoneal space: Unremarkable. No free air. No significant fluid collection. Vasculature: Unremarkable. No abdominal aortic aneurysm. Lymph nodes: Unremarkable. No enlarged lymph nodes. Urinary bladder: Unremarkable as visualized. Reproductive: Unremarkable as visualized. Bones/joints: Unremarkable. No acute fracture. Soft tissues: Unremarkable. CT/CT abdomen pelvis w con* [id number] IMPRESSION: 1. No bowel obstruction or inflammatory process associated with the bowel. 2. No free air or significant free fluid in the abdomen or pelvis. 3. No evidence of appendicitis.
--- NOTE | 2024-06-27 17:49 | W.ED.ABDPA2 ---
HPI - Abdominal Pain General: Chief Complaint: Abdominal Pain Stated Complaint: SOB Time Seen by Provider: 06/27/24 17:43 Source: patient Mode of arrival: ambulatory Limitations: no limitations History of Present Illness: 34-year-old female states she has been having abdominal pain that started this morning states she been having severe epigastric pain she also been having nausea vomiting. She rates the pain a 9 out of 10 she denies any fevers denies any radiation of her pain denies any worse improved factors. Associated Symptoms: Reports nausea and vomiting; Denies chills, diarrhea, dysuria and fever(s) Related Data Home Medications Medication Instructions Recorded Confirmed escitalopram oxalate 20 mg tablet 20 mg PO DAILY 03/12/23 05/08/24 bupropion HCl 150 mg tablet,12 hr 150 mg PO DAILY 12/28/23 05/08/24 sustained-release (Wellbutrin SR) Previous Rx's Medication Instructions Recorded ASO #1 ea 03/15/24 sole supports #1 ea 05/08/24 pregabalin 75 mg capsule (Lyrica) 75 mg PO TID #90 caps 06/15/24 ondansetron 4 mg disintegrating 4 mg PO Q6H PRN nausea and 06/27/24 tablet vomiting #14 tabs Allergies Allergy/AdvReac Type Severity Reaction Status Date / Time tramadol AdvReac Respiratory Verified 06/27/24 17:41 distress-can take ibuprofen Review of Systems Const: Denies: fever(s), chills, body aches or change in appetite ENMT: Denies: throat pain or dental pain Card: Denies: chest pain Resp: Denies: dyspnea GI: Reports: abdominal pain, nausea and vomiting; Denies: diarrhea : Denies: dysuria Musc: Denies: neck pain or back pain Skin/Breast: Denies: rash Neuro: Denies: headache(s) PFSH ED PFSH: Medical History No pertinent past medical history Denies hypertension, asthma, seizures, diabetes, DVT/PE PCP: [place] Anxiety and depression 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 Is currently weaning herself off the medication and states that she feels much better and more herself. She follows up with Jacey Mcfadden her primary care provider. Does not have a therapist Surgical History Status post tubal ligation at time of delivery, current hosp Status post History of classical section History of laparoscopic chole[place] (~02/2020) [place]. [place]rez[place] [facility] [place]oscopy (~02/2020) History of esophagogastroduodenoscopy (EGD) (~02/2020) History of conization of cervix (03/23/19) for BRITTANY 2---> performed [place] Dr. Ron at [facility] [place] Pathology showed BRITTANY-1 with negative margins and posteriorly. Post LEEP ECC was benign. Status post surgical removal of malignant neoplasm of skin (~2017) from head-wide local excision performed in 2018. H/O section (12/08/18) CLASSICAL DELIVERY performed at [facility]. Operative reports have been obtained and scanned into the chart on 02/06/2019---given small uterine size , classical hysterotomy made and the incision extended with bandage scissors. Double layer closure. H/O laparoscopy (04/01/16) 04/01/2016---diagnostic laparoscopy for chronic pain-per patient everything was normal-operative report was reviewed-normal tubes, ovaries and uterus. No endometriosis or any pathology identified. No specimen sent. Hx of tonsillectomy (~2007) History of hip surgery (~2012) Hip surgery for a torn tendon in [facility] Family History Grandmother Heart disease maternal Hypercholesteremia maternal Family history of thyroid problem maternal Diabetes maternal and paternal Hypertension maternal and paternal Grandfather Diabetes maternal Colon cancer maternal, age at diagnosis unknown Hypertension maternal and paternal Stroke maternal Mother Hypertension Father Hypertension Denies family history of Ovarian cancer Breast cancer Social History Smoking and tobacco/nicotine status: never used tobacco/nicotine Alcohol intake: current Alcohol intake frequency: holidays/special occasions only Substance/Drug Use: never Lives independently: Yes Marital status: Single Current occupational status: employed Current gender identity: Female Physical Exam Const: COMMON NORMALS: no acute distress, patient oriented x3 and healthy appearing HENMT: COMMON NORMALS: normocephalic and atraumatic HEAD & SCALP: normocephalic and atraumatic Neck/C-Spine: COMMON NORMALS: full ROM and supple Chest: COMMONS NORMALS: normal inspection of the chest Resp: COMMON NORMALS: normal respiratory effort, No retractions, No use of accessory muscles and clear to auscultation bilaterally AUSCULTATION: clear to auscultation bilaterally Cardio: COMMON NORMALS: regular rhythm and No murmurs present (Cardio) RATE: tachycardic RHYTHM: regular rhythm GI: COMMON NORMALS: Normal to inspection, nondistended, normoactive bowel sounds present, Soft to palpation and no masses PALPATION: Yes Soft to palpation and Yes Tenderness to palpation present (GI) Extremity: COMMON NORMALS: normal to inspection and full ROM Neuro: COMMON NORMALS: patient oriented x3, moves all extremities and no focal motor deficits Psych: COMMON NORMALS: mental status grossly normal, Normal thought process present and cooperative THOUGHT PROCESS: Normal thought process present Skin: COMMON NORMALS: no rashes or lesions noted and no wounds GENERAL SKIN EXAM: no rashes or lesions noted Course Vital Signs: Vital signs: Vital Signs Temperature 97.8 F 06/27/24 17:36 Pulse Rate 116 H 06/27/24 19:35 Respiratory Rate 26 H 06/27/24 17:36 Blood Pressure 147/65 06/27/24 19:35 Pulse Oximetry 96 06/27/24 19:35 Oxygen Delivery Me thod Room Air 06/27/24 19:35 MDM - Abdominal Pain Medical Decision Making Patient presents here with vomiting is likely a viral gastroenteritis she feels much improved after meds been able to tolerate p.o. abdominal exam at discharge is benign CT scan blood works normal she stable for discharge will prescribe Zofran she is follow-up with PCP and return if worsening. Medical Records I reviewed the patient's medical records. Lab Data I reviewed the patient's lab results. 06/27/24 18:10 06/27/24 18:10 Labs/Radiology: Radiology Impressions Chest X-Ray 06/27/24 17:28 IMPRESSION: No acute findings. Abdomen/Pelvis CT 06/27/24 17:46 IMPRESSION: 1. No bowel obstruction or inflammatory process associated with the bowel. 2. No free air or significant free fluid in the abdomen or pelvis. 3. No evidence of appendicitis. Laboratory Results WBC 7.62 10^3/uL (3.29-11.43) 06/27/24 18:10 RBC 4.86 10^6/uL (3.85-5.65) 06/27/24 18:10 Hgb 14.50 g/dL (11.27-16.99) 06/27/24 18:10 Hct 42.1 % (36-47) 06/27/24 18:10 MCV 86.6 fl (85-98) 06/27/24 18:10 MCH 29.8 pg (27-33) 06/27/24 18:10 MCHC 34.4 g/dL (30-55) 06/27/24 18:10 RDW 12.0 % (12.1-15.1) L 06/27/24 18:10 Plt Count 173 10^3/cmm (157-399) 06/27/24 18:10 MPV 10.8 fL (7.4-10.4) H 06/27/24 18:10 Neut % (Auto) 89.2 % 06/27/24 18:10 Lymph % (Auto) 5.6 % 06/27/24 18:10 [place] % (Auto) 3.7 % 06/27/24 18:10 Eos % (Auto) 0.8 % 06/27/24 18:10 Baso % (Auto) 0.3 % 06/27/24 18:10 Neut # (Auto) 6.80 10^3/uL (1.8-7.7) 06/27/24 18:10 Lymph # (Auto) 0.4 10^3/uL (0.8-4.8) L 06/27/24 18:10 [place] # (Auto) 0.3 10^3/uL (0.2-0.9) 06/27/24 18:10 Eos # (Auto) 0.1 10^3/uL (0.0-0.8) 06/27/24 18:10 Baso # (Auto) 0.0 10^3/uL (0.0-0.1) 06/27/24 18:10 Nucleated RBC % (auto) 0 % 06/27/24 18:10 Nucleated RBCs # 0.0 /100WBC 06/27/24 18:10 Sodium 137 mmol/L (136-145) 06/27/24 18:10 Potassium 3.7 mmol/L (3.5-5.1) 06/27/24 18:10 Chloride 105 mmol/L (98-107) 06/27/24 18:10 Carbon Dioxide 19 mmol/L (22-29) L 06/27/24 18:10 Anion Gap 16.7 (5-19) 06/27/24 18:10 BUN 15 mg/dL (6-20) 06/27/24 18:10 Creatinine 0.6 mg/dL (0.5-0.9) 06/27/24 18:10 GFR Calculation 115.1 mL/min (90-130) 06/27/24 18:10 Glucose 111 mg/dL (65-115) 06/27/24 18:10 Calculated Osmolality 286 mOsm/kg (285-295) 06/27/24 18:10 Calcium 9.0 mg/dL (8.5-10.5) 06/27/24 18:10 Total Bilirubin 1.4 mg/dL (0.15-1.2) H 06/27/24 18:10 AST 21 U/L (0-32) 06/27/24 18:10 ALT 30 U/L (0-33) 06/27/24 18:10 Alkaline Phosphatase 97 U/L (35-105) 06/27/24 18:10 Total Protein 7.0 g/dL (6.6-8.7) 06/27/24 18:10 Albumin 4.3 g/dL (3.5-5.2) 06/27/24 18:10 Globulin 2.7 g/dL (1.3-4.6) 06/27/24 18:10 Lipase 34 U/L (13-60) 06/27/24 18:10 HCG, Qual Negative (Negative) 06/27/24 18:10 All radiology interpretation(s) finalized by discharge EKG Data EKG 1: I personally reviewed and interpreted this EKG as follows: EKG interpretation date: 06/27/24 EKG interpretation time: 18:33 Interpretation: sinus tach hr [address] elevation qrs 86 qtc 365 Discharge Plan Discharge Patient Disposition: Home Clinical Impression: Abdominal pain, Vomiting Condition: Stable Prescriptions: New ondansetron 4 mg tablet,disintegrating 4 mg PO Q6H PRN (Reason: nausea and vomiting) Qty: 14 0RF No Action (DME) sole supports See Rx Instructions .Route .MEDSUPPLY Qty: 1 0RF Rx Instructions: As directed escitalopram oxalate 20 mg tablet 20 mg PO DAILY bupropion HCl [Wellbutrin SR] 150 mg tablet sustained-release 12 hr 150 mg PO DAILY (DME) ASO See Rx Instructions .Route .MEDSUPPLY Qty: 1 0RF Rx Instructions: As directed pregabalin [Lyrica] 75 mg capsule 75 mg PO TID Qty: 90 0RF Discharge Orders: Discharge ED (Routine); Ordered 06/27/24 Ordered By: Gela Neal Referrals: Kobe Meredith MD [Primary Care Provider] - 4-7 days Discharge Diet: Advance as tolerated Discharge Activity: Resume usual activity Patient Instructions: Acute Nausea and Vomiting (ED), Abdominal Pain (ED) Coding Level of Care Code ED [employer] for Chris Arechiga
[2024-06-27 18:17] LABS: Basophils % 0.3 %; Eosinophils # 0.1 10^3/uL (0.0-0.8); Eosinophils % 0.8 %; Hematocrit 42.1 % (36-47); Lymphocytes # 0.4 10^3/uL (0.8-4.8); Lymphocytes % 5.6 %; Mean Corpuscular HGB Conc 34.4 g/dL (30-55); Mean Corpuscular Hemoglobin 29.8 pg (27-33); Mean Corpuscular Volume 86.6 fl (85-98); Mean Platelet Volume 10.8 fL (7.4-10.4); Monocytes # 0.3 10^3/uL (0.2-0.9); Monocytes % 3.7 %; Neutrophils % 89.2 %; Nucleated Red Blood Cells % 0 %; Platelet Count 173 10^3/cmm (157-399); Red Blood Count 4.86 10^6/uL (3.85-5.65); White Blood Count 7.62 10^3/uL (3.29-11.43)
[2024-06-27 18:33] LABS: HCG, Serum Qual Negative (Negative)
--- NOTE | 2024-06-27 18:33 | ECG_ITS ---
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 Measurements Intervals [place] Rate: 117 P: 60 PA: 176 QRS: 68 QRSD: 86 T: 43 QT: 296 QTc: 414 Interpretive Statements SINUS TACHYCARDIA NONSPECIFIC T-WAVE ABNORMALITY ABNORMAL RHYTHM ECG Compared to ECG 02/17/2024 14:25:59 T-wave abnormality now present Sinus rhythm no longer present Electronically Signed On 06-27-2024 23:50:22 BARREL BUILDER by Yaz Erwin M.D. [email or web address]
[2024-06-27] MEDS: metoclopramide 5 mg/mL SDV 2 mL 10 MG IVP (18:37)
[2024-06-27] MEDS: HYDROmorphone 1 mg/mL INJ 1 mL IVP (18:37)
[2024-06-27] MEDS: diphenhydrAMINE 50 mg/mL SDV 1mL IVP (18:37)
[2024-06-27 18:38] LABS: Alanine Aminotransferase 30 U/L (0-33); Albumin Level 4.3 g/dL (3.5-5.2); Alkaline Phosphatase 97 U/L (35-105); Anion Gap 16.7 (5-19); Aspartate Amino Transferase 21 U/L (0-32); Blood Urea Nitrogen 15 mg/dL (6-20); Carbon Dioxide 19 mmol/L (22-29); Chloride 105 mmol/L (98-107); Creatinine Clr Calc Pharmacy 179.1193; Globulin 2.7 g/dL (1.3-4.6); Glomerular Filtration Rate 115.1 mL/min (90-130); Glucose 111 mg/dL (65-115); Lipase 34 U/L (13-60); Osmolality Calculated 286 mOsm/kg (285-295); Potassium 3.7 mmol/L (3.5-5.1); Sodium 137 mmol/L (136-145); Total Bilirubin 1.4 mg/dL (0.15-1.2)
[2024-06-27] MEDS: iohexol 350 mg/mL 500 mL Btl (per mL) IV (18:57)
[2024-06-27 19:35] VITALS: BP 147/65; PULSE 116; O2SAT 96
[2024-06-27 20:00] VITALS: BP 123/67; PULSE 114; O2SAT 96
[2024-06-27 20:30] VITALS: BP 152/73; PULSE 114; O2SAT 96
[2024-06-27 21:06] VITALS: BP 152/73; PULSE 114; O2SAT 96
== END 2024-06-27 20:50 | disposition home or self-care (01) ==
PROVIDERS: Emergency Provider Emergency Medicine; PCP Family Medicine
DX: R10.9 Unspecified abdominal pain (principal); R11.10 Vomiting, unspecified
CPT/HCPCS: 36415; 71045; 74177; 80053; 83690; 84703; 85025; 93005; 96374; 96375; 99285; J1171; J1200; J2765

== ENCOUNTER 2024-08-23 06:00 | Outpatient (RCR) | payer OTHER, SELFPAY | END 2024-09-11 23:59 | disposition home or self-care (01) | LOC: SPT 06:00 | PROVIDERS: Visit Provider Podiatrist Foot & Ankle Surgery | DX: M84.364D Stress fracture, left fibula, subsequent encounter for fracture with routine healing (principal) | CPT/HCPCS: 97110; 97112; 97161 ==

== ENCOUNTER 2024-09-12 06:00 | Outpatient (RCR) | payer OTHER, SELFPAY | END 2024-09-22 12:01 | disposition home or self-care (01) | LOC: SPT 06:00 | PROVIDERS: Visit Provider Podiatrist Foot & Ankle Surgery | DX: M84.364D Stress fracture, left fibula, subsequent encounter for fracture with routine healing (principal) | CPT/HCPCS: 97110; 97112 ==

== ENCOUNTER 2024-09-20 14:52 | Outpatient (CLI) | payer OTHER, SELFPAY ==
--- NOTE | 2024-09-20 15:15 | MR_ITS ---
WS: [id number] MRI LEFT ANKLE WITHOUT CONTRAST. COMPARISON: Prior MRI 02/10/2024 Multiplanar, multisequence imaging is performed without contrast. History: Ankle pain and instability. History of Brostrom repair. Twisting injury 1 month ago. No marrow edema or acute fracture. Postoperative changes are noted in the distal fibula and the talus. No widening of the syndesmosis. No significant joint effusion. Achilles tendon is intact. Surgical repair of the anterior talofibular ligament has been performed since the prior exam. There is intermediate signal in the expected location of the ATFL. Some of the repaired fibers are still present but there is also increased fluid. Suspicious for at least a partial reinjury. The posterior talofibular ligament is intact. Anterior inferior and posterior inferior tibiofibular ligaments are intact. Small caliber but intact calcaneofibular ligament. Normal deltoid ligament. Flexor and extensor tendons are normal. No tendinopathy or signal abnormalities. MR/MR ankle LT wo con* [id number] IMPRESSION: 1. Normal appearance of the peroneal tendons and the peroneal tendon sheath. N o residual tenosynovitis or edema. 2. Normal appearance of the calcaneofibular ligament. 3. Status post Brostrom repair of the ATFL. There is increased T2 signal at th e site of the ATFL repair. Similar findings can be noted with normal MRI repair status. There is just a slight amount of increased fluid suggesting there may be a partial retear. The superficial most repair appears intact. 4. There is a small amount of edema along the lateral ankle at the surgical be d. Suspicious for partial retear.
== END 2024-09-20 14:53 | disposition home or self-care (01) ==
PROVIDERS: PCP Family Medicine; Visit Provider Podiatrist Foot & Ankle Surgery
DX: S82.832A Other fracture of upper and lower end of left fibula, initial encounter for closed fracture (principal); X58.XXXA Exposure to other specified factors, initial encounter; Z98.890 Other specified postprocedural states; R93.6 Abnormal findings on diagnostic imaging of limbs
CPT/HCPCS: 73721

== ENCOUNTER 2024-10-13 08:26 | Day surgery (SDC) | payer OTHER, SELFPAY ==
[2024-10-13] VITALS (17 sets, daily range): BP systolic 107–140; BP diastolic 58–91; PULSE 70–88; RESP 12–19; TEMP 36.1–36.3; O2SAT 94–100; BMI 35.2
[2024-10-13] MEDS: scopolamine 1 mg PATCH 1 PATCH TRANSDERMA (08:59)
[2024-10-13] MEDS: sodium chloride 0.9% 1,000 ML 30 ML IV (09:18)
[2024-10-13 09:20] LABS: OR HCG Qualitative Urine Negative (Negative)
--- NOTE | 2024-10-13 09:30 | P.ANESASSM_ITS ---
Pre-Anesthetic Assessment Height/Weight: Height 5 ft 10 in Weight 245 lb Temp Pulse Resp BP Pulse Ox O2 Del Method 97.2 F L 71 18 123/75 96 Room Air 10/13/24 08:42 10/13/24 08:42 10/13/24 08:42 10/13/24 08:42 10/13/24 08:42 10/13/24 08:42 Preop Diagnosis: Left ankle instability Operation Date: 10/13/24 10:00 Proposed Procedures p LEFT Hardware Removal(Left) - Ghanshyam Mitchell DPM s Modified Brostr?m left ankle(Left) - Ghanshyam Mitchell DPM s Lleft calcaneal fibular ligament repair.(Left) - Ghanshyam Mitchell DPM Was Beta Carissa taken within 24 hours: N/A Was Clonidine taken within 24 hours: N/A Last intake: Intake Last Liquid Date 10/13/24 Last Liquid Time 04:00 Last Solid Date 10/12/24 Last Solid Time 20:30 Social No alcohol and No tobacco Exam alert, oriented x 3, clear to auscultation bilaterally and regular rate & rhythm Airway Submandibular: within normal limits Cervical ROM: within normal limits Mallampati: Class II Dentition: full Anesthetic Plan ASA status: 2 Anesthesia: General Other: No prior issues with anesthesia NPO since yesterday evening Patient has a history of CRPS following her previous surgery in the same extremity Denies any cardiac or pulmonary issues Patient knows that she is at risk for CRPS to be present itself following surgery. Will plan on preop nerve block to help mitigate this Plan for general anesthesia with preop nerve block Medications/Allergies Home Medications ?Medication ?Instructions ?Recorded ?Confirmed ?Last Taken ?Type ASO #1 ea 03/15/24 10/11/24 Unkn own Rx sole supports #1 ea 05/08/24 10/11/24 Unkn own Rx celecoxib 100 mg capsule (Celebrex) 100 mg PO BID 30 d ays #60 caps 10/02/24 10/11/24 10/12/24 Rx pregabalin 100 mg capsule (Lyrica) 100 mg PO TID #90 c aps 10/03/24 10/11/24 10/13/24 Rx bupropion HCl 150 mg tablet,12 hr 150 mg PO DAILY #90 tabs 10/11/24 10/13/24 10/12/24 Rx sustained-release (Wellbutrin SR) escitalopram oxalate 20 mg tablet 20 mg PO DAILY #90 t abs 10/11/24 10/11/24 10/13/24 Rx Allergies Allergy/AdvReac Type Severity Reaction Status Date / Time No Known Allergies Allergy Verified 10/11/24 13:49 Current Medications Generic Name Dose Route Start Last Admin Trade Name Mackq PRN Reason Stop Dose Admin Sodium Chloride 1,000 mls @ 30 mls/hr 10/13/24 08:45 10/13/24 09:18 Sodium Chloride 0.9% IV 10/14/24 08:44 30 mls/hr .Q24H KHANG Administration PFS Anesthesia Medical History (Updated 10/11/24 @ 08:11 by Derrek Armstrong MD) CRPS (complex regional pain syndrome type II) Chronic instability of ankle MDD (major depressive disorder) Generalized anxiety disorder Obesity (BMI 35.0-39.9 without comorbidity) No pertinent past medical history Denies hypertension, asthma, seizures, diabetes, DVT/PE PCP: Jayda Anxiety and depression 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 Is currently weaning herself off the medication and states that she feels much better and more herself. She follows up with Jacey Mcfadden her primary care provider. Does not have a therapist Surgical History (Updated 10/11/24 @ 08:11 by Derrek Armstrong MD) Status post tubal ligation at time of delivery, current hosp History of laparoscopic cholecystectomy (~02/2020) dr. ram[facility]rez- [facility] [place] History of conization of cervix (03/23/19) for BRITTANY 2---> performed by Dr. Ron at [facility] [place] Pathology showed BRITTANY-1 with negative margins and posteriorly. Post LEEP ECC was benign. Status post surgical removal of malignant neoplasm of skin (~2017) from head-wide local excision performed in 2018. H/O section (12/08/18) CLASSICAL DELIVERY performed at [facility]. Operative reports have been obtained and scanned into the chart on 02/06/2019---given small uterine size , classical hysterotomy made and the incision extended with bandage scissors. Double layer closure. H/O laparoscopy (04/01/16) 04/01/2016---diagnostic laparoscopy for chronic pain-per patient everything was normal-operative report was reviewed-normal tubes, ovaries and uterus. No endometriosis or any pathology identified. No specimen sent. Hx of tonsillectomy (~2007) History of hip surgery (~2012) Hip surgery for a torn tendon in [facility] Family History Grandmother Heart disease maternal Hypercholesteremia maternal Family history of thyroid problem maternal Diabetes maternal and paternal Hypertension maternal and paternal Grandfather Diabetes maternal Colon cancer maternal, age at diagnosis unknown Hypertension maternal and paternal Stroke maternal Mother Hypertension Father Hypertension Denies family history of Ovarian cancer Breast cancer Social History Smoking and tobacco/nicotine status: never used tobacco/nicotine Alcohol intake: current Alcohol intake frequency: holidays/special occasions only Substance/Drug Use: never Lives independently: Yes Marital status: Single Current occupational status: employed Current gender identity: Female
--- NOTE | 2024-10-13 09:31 | W.PM.OPSUD ---
Surgery/Procedure H&P Update DATE OF PROCEDURE: October 13, 2024 DATE H&P PERFORMED: 10/02/24 H&P UPDATE INFORMATION: I have reviewed H&P completed within last 30 days, I have examined patient prior to procedure, No changes to prior documentation and Risks and benefits of the procedure reviewed PREOP DIAGNOSIS: Left ankle instability PLANNED PROCEDURE: Operation Date: 10/13/24 10:00 Proposed Procedures p LEFT Hardware Removal(Left) - Ghanshyam Mitchell DPM s Modified Brostr?m left ankle(Left) - Ghanshyam Mitchell DPM s Lleft calcaneal fibular ligament repair.(Left) - Ghanshyam Mitchell DPM
--- NOTE | 2024-10-13 09:54 | ANES.PROC ---
Anesthesia Procedures Procedure/Date: 10/13/24 Nerve Block ^: Nerve Block 1: Main Anesthesia: other Time Out Performed: Yes Consent: requested by attending/covering physician and from patient Nerve block location: popliteal Anesthesia monitors applied: pulse oximetry, EKG, BP cuff and oxygen Nerve block position: supine Anesthetic Used: bupivacaine 0.5% Amount of anesthesia used (mL): 25 Ultrasound used to: recognize landmarks Nerve Stimulator Used?: Yes Interscalene/Femoral BLK: other needle (pjunk 4inch) Injection: neg aspiration of heme Patient Tolerated Procedure: well Complications: none Additional Comments: decadron 4mg
[2024-10-13] MEDS: ceFAZolin 2,000 mg SDV 2000 MG IVP (10:03)
[2024-10-13] MEDS: BUPivacaine liposome 13.3 mg/mL SDV 20 mL 266 MG INFILTRATI (10:31)
--- NOTE | 2024-10-13 11:32 | W.PM.BPON ---
Date of Procedure: 08/27/23 Surgeon: Ghanshyam Mitchell DPM Special Services Director(s): Shahbaz Atkinson Procedure(s) performed: Left lateral ankle stabilization Findings of the procedure(s): Ligamentous laxity with positive anterior drawer sign preoperatively left ankle. Estimated blood loss: 1 mL Specimen(s) removed: None Post-operative diagnosis: Left lateral ankle instability
--- NOTE | 2024-10-13 11:33 | PM.OP ---
Operative Report Date of procedure: October 13, 2024 Pre-op diagnosis: Left ankle instability M25.372 Injury of left ankle, subsequent encounter S99.912D Painful orthopaedic hardware T84.84XA Post-op diagnosis: Left ankle instability M25.372 Injury of left ankle, subsequent encounter S99.912D Painful orthopaedic hardware T84.84XA Procedure done: 1) hardware removal left ankle. CPT code 99545 2) modified Brostr?m left ankle. CPT code 15004 3) left calcaneal fibular ligament repair. CPT code 93019 Implants: Arthrex Brostr?m 2.0 internal brace, 2-0 Vicryl, 4-0 Vicryl, 4 nylon Surgeon: Ghanshyam Mitchell DPM Analysis Internship: [employer] Estimated blood loss: 1 mL 55 minutes IV fluids: See intraoperative documentation Urine output: None Complications: None Brief History: 34-year-old female with left lateral ankle instability presents for surgical consultation would entail hardware removal, modified Brostr?m and CFL repair. I reviewed at length with the patient, the risks, potential complications, benefits, alternatives, expectations, and typical outcomes associated with the surgery. The risks and potential complications were explained in detail, including but not limited to infection, wound dehiscence or soft tissue complications, bleeding and hematoma, chronic edema, neuritis or nerve damage producing numbness or chronic pain, CRPS, failure to relieve pain or worsening pain, thick / painful / unsightly scar, limited motion / stiffness, malposition, delayed union, malunion, or nonunion, fracture, reaction to implants, anesthetic complications, venous thromboembolism, and deformity recurrence. I discussed the notion of no regrets with the patient as it pertains to complications and outcomes. The patient seemed to understand the nature of the proposed care and required convalescence. They asked appropriate questions, answered to their satisfaction. They are aware no guarantees can be made as to a satisfactory outcome and they understand there may be other possible unforeseen complications or outcomes not listed here that will be treated accordingly if they arise. There were no written or implied guarantees given to the patient. They gave informed consent to proceed. - Take Lyrica 100 mg three times a day as prescribed. - Take Celebrex 100 mg twice daily. - Maintain medication compliance with anxiety medications. - Schedule follow-up visits as necessary to evaluate healing and pain levels. - Contact the office immediately if you experience unusual pain, swelling, or complications. - Continue a healthy diet and stay hydrated to manage medication side effects. Procedure: Under mild sedation the patient was brought to the operating room and remained on the gurney in supine position. A timeout was performed. Anesthesia was then administered by the anesthesia service. Of note patient had a popliteal block to the left lower extremity per anesthesia preoperatively. 20 cc of Exparel was infiltrated proximal to the left lateral ankle operative site in a grid like fashion subcutaneously. Well-padded pneumatic tourniquet applied to the left high calf. The left lower extremity was scrubbed, prepped and draped utilizing normal aseptic technique. Left foot and ankle were exanguinated with an Esmarch bandage and tourniquet inflated to 250 mmHg. Attention was directed to the left lateral ankle where anterior drawer sign demonstrated ligamentous laxity. Directly over previous cicatrix a curvilinear incision was performed through skin with a 15 blade at the distal fibula coursing toward fourth metatarsal base approximately 3 cm in length. Dissection was carried down through subcutaneous tissue to the layer of ATFL and retinaculum which was noted to have minimal fibrosing. Able to visualize the internal brace and noted to have laxity and play within the brace. The suture anchor at the distal fibula and the talus were removed in total and passed from the operative field and suture tape from the internal brace removed. The incision was irrigated with saline solution. A new Arthrex Brostr?m 2.0 under appropriate tension with patient in dorsiflexed position care taken to not over tighten and provide appropriate stability and augmentation to the ATFL. The tape was then turned inferiorly and an additional CFL brace was created with a bone anchor inserted at the lateral wall of the calcaneus confirmed with C arm placement not violating the subtalar joint. The incision was irrigated with copious amounts sterile saline solution. ATFL and CFL were imbricated and repaired with 2-0 Vicryl retinaculum was reapproximated 3-0 Vicryl and skin with 4-0 nylon. Incision was dressed with jumpstart, 4 x 4 gauze, Kerlix and Miguel wrap followed by application of a well-padded multilayer compressive posterior splint with stirrup. Tourniquet was deflated and a prompt hyperemic response is noted to the distal digits of the left foot. Patient tolerated the procedure and anesthesia well and was transferred to the PACU with vital signs stable and vascular status intact. Following a period of postoperative monitoring she will be discharged home without home care instructions and scheduled follow-up. Postoperatively anterior drawer sign indicated no ligamentous laxity and excellent stability at the left ankle.
== END 2024-10-13 13:25 | disposition home or self-care (01) ==
PROVIDERS: Student in an Organized Health Care Education/Training Program; PCP Family Medicine; Visit Provider Podiatrist Foot & Ankle Surgery
PROC: (CPT 27695; principal; 2024-10-13 09:50)
PROC: (CPT 27698; 2024-10-13 09:50)
PROC: (CPT 27695; 2024-10-13 09:50)
DX: T84.84XA Pain due to internal orthopedic prosthetic devices, implants and grafts, initial encounter (principal); M25.372 Other instability, left ankle; G57.72 Causalgia of left lower limb; Z79.899 Other long term (current) drug therapy
CPT/HCPCS: 27695; 27698; 20680; 81025; C1713; J0666; J0690; J1100; J1200; J1885; J2250; J2405; J2704; J3010; J3490; J7030; J9999

== ENCOUNTER 2024-11-12 05:00 | Outpatient (RCR) | payer OTHER, SELFPAY | END 2024-12-11 23:59 | disposition home or self-care (01) | LOC: SPT 05:00 | PROVIDERS: Visit Provider Podiatrist Foot & Ankle Surgery | DX: M25.572 Pain in left ankle and joints of left foot (principal); Z47.89 Encounter for other orthopedic aftercare | CPT/HCPCS: 97110; 97112; 97161 ==

== ENCOUNTER → 2024-12-27 12:53 | Outpatient (BNVA) | payer OTHER, SELFPAY | PROVIDERS: PCP Family Medicine; Visit Provider Podiatrist Foot & Ankle Surgery | DX: M25.572 Pain in left ankle and joints of left foot (principal); G57.72 Causalgia of left lower limb; Z98.890 Other specified postprocedural states | CPT/HCPCS: 73610 ==

== ENCOUNTER 2024-12-28 08:59 | Outpatient (RCR) | payer OTHER, SELFPAY | END 2025-01-11 23:59 | disposition home or self-care (01) | LOC: SPT 08:59 | PROVIDERS: PCP Family Medicine; Visit Provider Podiatrist Foot & Ankle Surgery | DX: Z98.890 Other specified postprocedural states (principal) | CPT/HCPCS: 97110; 97112; 97140; 97164 ==

== ENCOUNTER 2025-01-12 06:00 | Outpatient (RCR) | payer OTHER, SELFPAY | END 2025-02-11 23:59 | disposition home or self-care (01) | LOC: SPT 06:00 | PROVIDERS: PCP Family Medicine; Visit Provider Podiatrist Foot & Ankle Surgery | DX: Z47.89 Encounter for other orthopedic aftercare (principal) | CPT/HCPCS: 97110 ==

== ENCOUNTER 2025-02-12 06:30 | Outpatient (RCR) | payer OTHER, SELFPAY | END 2025-03-12 07:51 | disposition home or self-care (01) | LOC: SPT 06:30 | PROVIDERS: PCP Family Medicine; Visit Provider Podiatrist Foot & Ankle Surgery | DX: M25.572 Pain in left ankle and joints of left foot (principal); Z47.89 Encounter for other orthopedic aftercare | CPT/HCPCS: 97110; 97112 ==

== ENCOUNTER 2025-02-22 07:56 | Outpatient (CLI) | payer OTHER, SELFPAY ==
--- NOTE | 2025-02-22 08:00 | MRR_ITS ---
PROCEDURE INFORMATION: Exam: MR Left Lower Extremity Joint Without Contrast; Ankle Exam date and time: 02/22/2025 8:29 AM Age: 34 years old Clinical indication: Prior surgery; Surgery date: 6+ months; Surgery type: Ankle pain, injured approx 1+ year ago, PT has had surgery and still having pain all around ankle joint. note: To the clinic for post operative follow up following hardware removal left ankle, modified brostr??m left ankle, left calcaneal fibular ligament repair. Surgery--modified berostrum repair, lt ankle hardware removed; Ankle pain, injured approx 1+ year ago, PT has had surgery and still having pain all around ankle joint. note: To the clinic for post operative follow up following hardware removal left ankle, modified brostr??m left ankle, left calcaneal fibular ligament repair dos: . Smoking--n. Cancer (type)--skin. Surgery--modified berostrum repair, lt ankle hardware removed; Additional info: Left ankle pain, not better post op TECHNIQUE: Imaging protocol: Magnetic resonance imaging of the left lower extremity without contrast. Exam focused on the ankle. COMPARISON: MR ankle LT wo con* [id number] 09/20/2024 3:31 PM FINDINGS: Bones/joints: Postsurgical changes noted involving the calcaneus, fibula and talus. No acute appearing marrow edema or fracture is noted. There is a physiologic amount of fluid within the joints. There are postoperative changes LIGAMENTS: Distal tibiofibular syndesmosis: Unremarkable. No tear. Anterior talofibular ligament: There are postoperative changes status post repair. There appear to be intact repaired ligament fibers although ligament fibers are somewhat attenuated suggesting the possibility of partial tearing. Posterior talofibular ligament: Unremarkable. No tear. Calcaneofibular ligament: The calcaneofibular ligament appears to be somewhat small but appears to be intact. Deltoid ligament complex: Unremarkable. No tear. TENDONS: Flexor tendons of foot: Unremarkable as visualized. Tibialis posterior tendon: Unremarkable as visualized. Peroneal tendons: Unremarkable as visualized. Extensor tendons of foot: Unremarkable as visualized. Tibialis anterior tendon: Unremarkable as visualized. Achilles tendon: Unremarkable as visualized. Tarsal canal (Sinus tarsi): Unremarkable. Normal signal of the fat. Tarsal tunnel: Unremarkable. Soft tissues: Unremarkable. Plantar fascia: Plantar fascia is unremarkable. MR/MR ankle LT wo con* [id number] IMPRESSION: 1. Postoperative changes status post lateral ankle ligament reconstruction/Brostrom repair. There appear to be intact fibers of the ATFL. However, fibers are somewhat attenuated suggesting partial tearing. The calcaneofibular ligament also appears to be intact but appears to be somewhat small.
== END 2025-02-22 07:57 | disposition home or self-care (01) ==
LOC: RAD 07:58
PROVIDERS: PCP Family Medicine; Visit Provider Podiatrist Foot & Ankle Surgery
DX: M76.72 Peroneal tendinitis, left leg (principal); M25.373 Other instability, unspecified ankle
CPT/HCPCS: 73721